=== PATIENT | male | born 1935 | race Caucasian/White ===

== ENCOUNTER → 2016-10-27 | Outpatient (REF) | payer MEDICARE, OTHER ==
[~2016-10-27] MED LIST: ACET50TAOT PO; ADV250INH INH; ALBU17IN INH; ALPR0.5T3 PO; AMIO20TA PO; ASPI81TA85 PO; ATOR1TAB21 PO; CARV3.12 PO; LISI-542 PO; NITR3TA SL; OMEPRAZOLE DR PO; SERT50TA PO; SPIR25TA2 PO; TIOT18INH INH; TORS20TA2 PO; VOLT1GEL24 TD; ZOLP5TAB PO; [UNRECOGNIZED DRUG - OTHER] PO
== END ==
LOC: M LAB REF 16:55
PROVIDERS: ATTEND Internal Medicine
DX: I13.0 Hypertensive heart and chronic kidney disease with heart failure and stage 1 through stage 4 chronic kidney disease, or unspecified chronic kidney disease (principal)

== ENCOUNTER 2017-02-20 13:19 | Emergency (ER) | payer MEDICARE, BC, OTHER ==
[~2017-02-20] VITALS: Ht 175.3 cm; Wt 84.1 kg
[~2017-02-20 13:19] MED LIST changes: +VOLT1GEL15 TD; -VOLT1GEL24 TD
[2017-02-20] MEDS ORDERED: DIGO0.12 PO (13:35)
[2017-02-20] MEDS ORDERED: ASPI81TA85 PO (13:35)
[2017-02-20] MEDS ORDERED: INSUH10VL SC (13:37)
[2017-02-20] MEDS ORDERED: IPRATROPIUM 0.5MG/ALBUTEROL 2.5MG INH SOL UD 3ML (DUONEB)(J7620) NEB ONE (14:00)
[2017-02-20 14:05] LABS: VENOUS O2 SATURATION 64.5 % (60.0-80.0); VENOUS PARTIAL PRESSURE CO2 40.9 mmHg (38.0-50.0); VENOUS PARTIAL PRESSURE O2 34.6 mmHg (30.0-50.0); VENOUS TOTAL CO2 24.4 MEQ/L (24.0-28.0)
[2017-02-20 14:08] LABS: ADD MANUAL DIFFER YES; MEAN CORPUSCULAR HEMOGLOBIN 30.9 pg (27.0-33.0); MEAN CORPUSCULAR HGB CONC 33.8 g/dl (32.0-36.5); MEAN CORPUSCULAR VOLUME 91.4 fl (80.0-96.0); PLATELET COUNT, AUTOMATED 234 k/mm3 (150-450); RED CELL DISTRIBUTION WIDTH 14.1 % (11.5-14.5); WHITE BLOOD COUNT 18.2 K/mm3 (4.0-10.0)
[2017-02-20 14:24] LABS: BANDS 6 % (< 11)
[2017-02-20 14:25] LABS: CALCIUM LEVEL 9.6 MG/DL (8.8-10.2); CREATININE FOR GFR 1.89 MG/DL (0.70-1.30); GLOMERULAR FILTRATION RATE 36.6 (>35); POTASSIUM SERUM 4.4 MEQ/L (3.5-5.1)
[2017-02-20 14:26] LABS: ALBUMIN 3.7 GM/DL (3.2-5.2); ALBUMIN/GLOBULIN RATIO 0.95 (1.00-1.93); BILIRUBIN,DIRECT 0.2 MG/DL (0.0-0.2); BILIRUBIN,TOTAL 0.9 MG/DL (0.2-1.0); TOTAL PROTEIN 7.6 GM/DL (6.4-8.2)
[2017-02-20 14:35] LABS: DIGOXIN LEVEL 0.5 NG/ML (0.5-2.0)
[2017-02-20] MEDS ORDERED: cefTRIAXone SOD 1 GM in D5W MINI-BAG PLUS 50 ML IV ONE (15:15)
[2017-02-20] MEDS ORDERED: NS 2,520 ML in APPROPRIATE DILUENT 1 EA IV ONE (15:15)
[2017-02-20] MEDS ORDERED: AZITHROMYCIN INJ 500 MG, VIAL MATE ADAPTER 1 EACH in D5W 250 ML IV ONE (15:15)
[2017-02-20] MEDS ORDERED: LEVA750T7 PO (19:10)
[2017-02-20 19:34] VITALS: BP 116/61
--- NOTE | 2017-02-20 20:59 | REP ---
CHEST, TWO VIEWS: Two views of the chest are performed and compared with prior study of 11/04/2015 as well as other prior exams. Diffuse patchy infiltrate is seen in the right lung, more so inferiorly. Chronic interstitial changes are seen in the left lung base unchanged. Cardiomediastinal silhouette is unchanged. Heart does not appear to be significantly enlarged. Left pacemaker is again noted. There are mild degenerative changes of the spine. IMPRESSION: Diffuse right lung infiltrate, more so inferiorly. Signed by Will Beltran MD 02/21/2017 01:06 P
--- NOTE | 2017-02-21 08:19 | ECGEPIP ---
Stationary ECG Study [facility] - ED Test Date: 2017-02-20 Pat Name: DAPHNE OCHOA Department: Room: - Gender: M Strapper: sherrell : 1935 Requested By: BRICE NEGRETE Order Number: [id number] Reading MD: Joseluis Lobo Measurements Intervals [place] Rate: 89 P: 39 MT: 158 QRS: 180 QRSD: 127 T: 3 QT: 385 QTc: 469 Interpretive Statements ELECTRONIC VENTRICULAR PACEMAKER ABNORMAL RHYTHM ECG Electronically Signed On 02-21-2017 8:18:51 EDT by Joseluis Lobo
[2017-04-12] MEDS ORDERED: PRED5TA PO (14:45)
[2017-04-12] MEDS ORDERED: NOVO1INJ4 SC (14:45)
[2017-04-12] MEDS ORDERED: MAGN400T5 PO (14:45)
[2017-04-12] MEDS ORDERED: FURO20TA2 PO (14:45)
[2017-04-12] MEDS ORDERED: NOVO70VL SC ×2 (14:45)
[2017-04-12] MEDS ORDERED: VITA200016 PO (14:45)
[2017-04-12] MEDS ORDERED: PROAAER10 INH (14:45)
[2017-04-12] MEDS ORDERED: CART120C PO (14:45)
[2017-04-12] MEDS ORDERED: LEVO75TA4 PO (14:45)
== END 2017-02-20 19:42 | disposition home or self-care (01) ==
LOC: M ED 14:40
DX: J18.9 Pneumonia, unspecified organism (principal); I11.9 Hypertensive heart disease without heart failure; I50.9 Heart failure, unspecified; E11.9 Type 2 diabetes mellitus without complications; E78.5 Hyperlipidemia, unspecified; G89.29 Other chronic pain; M54.9 Dorsalgia, unspecified; K57.30 Diverticulosis of large intestine without perforation or abscess without bleeding; I44.2 Atrioventricular block, complete; F41.9 Anxiety disorder, unspecified; F33.8 Other recurrent depressive disorders; Z95.0 Presence of cardiac pacemaker; Z88.8 Allergy status to other drugs, medicaments and biological substances; Z91.041 Radiographic dye allergy status; Z87.891 Personal history of nicotine dependence; Z79.82 Long term (current) use of aspirin; Z79.4 Long term (current) use of insulin; Z79.899 Other long term (current) drug therapy
CPT/HCPCS: 71020; 80048; 80076; 80162; 82550; 82553; 82803; 83605; 83880; 84443; 84484; 85025; 85379; 87040; 93005; 93041; 94640; 96361; 96374; 96375; 99285; J0456; J0696

== ENCOUNTER 2017-04-13 05:58 | Day surgery (SDC) | payer MEDICARE, BC, OTHER ==
[~2017-04-13] VITALS: Ht 175.3 cm; Wt 83.9 kg
[~2017-04-13 05:58] MED LIST changes: +CART120C PO; +DIGO0.12 PO; +FURO20TA2 PO; +INSUH10VL SC; +LEVA750T7 PO; +LEVO75TA4 PO; +MAGN400T5 PO; +NOVO1INJ4 SC; +NOVO70VL SC; +PRED5TA PO; +PROAAER10 INH; +VITA200016 PO
[2017-04-13] MEDS ORDERED: LR 1,000 ML IV SCH ×2 (06:15→08:45)
[2017-04-13] MEDS ORDERED: BACITRACIN PWD 50,000 UNITS VIAL As Ordered ONE (07:15)
[2017-04-13] MEDS ORDERED: AMIODARONE 150MG/3ML INJ (J0282) As Ordered ONE (07:15)
[2017-04-13] MEDS ORDERED: ISOVUE-300 61% 50ML VIAL (Q9967) As Ordered ONE (07:15)
[2017-04-13] MEDS ORDERED: LIDOCAINE 1% SDV INJ 30 ML VIAL As Ordered ONE (07:15)
[2017-04-13] MEDS ORDERED: MIDAZOLAM INJ 2 MG/2 ML VIAL (J2250) As Ordered ONE (07:53)
[2017-04-13] MEDS ORDERED: LIDOCAINE 2% INJ 100 MG/5 ML SDV (FOR ANES.) As Ordered ONE (07:53)
[2017-04-13] MEDS ORDERED: PROPOFOL 200 MG/20 ML VIAL As Ordered ONE (07:53)
[2017-04-13] MEDS ORDERED: fentaNYL 100 MCG/2 ML INJECTION (J3010) As Ordered ONE (07:53)
[2017-04-13] MEDS ORDERED: ONDANSETRON 4MG/2ML VIAL (J2405) IV PRN (08:45)
[2017-04-13] MEDS ORDERED: fentaNYL 100 MCG/2 ML INJECTION (J3010) IV PRN (08:45)
--- NOTE | 2017-04-13 09:10 | RO ---
DATE OF PROCEDURE: 04/13/2017 PROCEDURE: 1. Explantation of depleted biventricular implantable cardioverter defibrillator pulse generator. 2. Testing of old atrial and ventricular pacing leads. 3. Implantation of new dual-chamber pulse generator. IMPLANTING ARTIST SCIENTIFIC: Dr. Bharath Atkinson WASTE COLLECTOR: Dr. Scotty Lloyd ANESTHESIOLOGIST: Dr. Muñoz PREOPERATIVE DIAGNOSES: 1. Depleted biventricular implantable cardioverter defibrillator pulse generator. 2. Heart failure (systolic and diastolic/chronic). 3. Abnormal EKG - left bundle branch block. 4. Dilated cardiomyopathy. 5. DO NOT RESUSCITATE. POSTPROCEDURE DIAGNOSES: 1. Depleted biventricular implantable cardioverter defibrillator pulse generator. 2. Heart failure (systolic and diastolic/chronic). 3. Abnormal EKG - left bundle branch block. 4. Dilated cardiomyopathy. 5. DO NOT RESUSCITATE. TYPE OF ANESTHESIA: Monitored local anesthesia. CLINICAL SUMMARY: This 81-year-old resident of [place] is well-known to my cardiology practice with ischemic, hypertensive and nonischemic cardiomyopathy. Status post LAD stenting procedure. Status post biventricular implantable cardioverter defibrillator since June 14, 2011. On combination medical therapy and his cardiac resynchronization, his left ventricle ejection fraction dramatically improved. Continues to be followed closely by my cardiology practice and was recently found to have his device indicating elective replacement indicator. His semi elective replacement was scheduled today. As the patient is now DNR, he wished to have his biventricular ICD replaced with a pacemaker. CARDINAL CARDIAC SYMPTOMS: Has been free of any effort related chest discomfort. Has advanced pulmonary disease, wearing continuous oxygen and walks no longer than 50 to 100 feet prior to stopping with dyspnea. Has been free of any palpitations despite a history of prior paroxysmal atrial fibrillation and nonsustained ventricular tachycardia. Previously on amiodarone antiarrhythmic therapy but developed amiodarone pulmonary toxicity. Denies near syncope or syncope, embolic phenomenon or claudication. PHYSICAL EXAMINATION: On examination, pleasant, medium build, elderly gentleman with barrel chest, laying comfortably. Heart rate is 86 beats per minute and regular. Blood pressure 102/60 sitting, respiratory rate 20. Body Mass Index (BMI) 27.5. No pallor or cyanosis. Normal oral moisture. Trachea midline. Neck veins 2 cm above the sternal angle. Increased anteroposterior chest diameter with well-healed left subclavian ICD pulse generator incision. Good air entry over both lung inman with bibasilar inspiratory rales related to pulmonary fibrosis. Prolonged expiration but no audible wheeze. Apical impulse not palpable. Heart sounds quite distant. Has a very soft systolic ejection murmur at the right base. Soft, nontender abdomen. No dependent edema. Peripheral pulses were symmetrical and normal. Blood work February 20, 2017 showed a hemoglobin 13.7 and slightly elevated white blood cell count on steroid therapy. Normal platelet count. His electrolytes were normal except for serum sodium of 131, BUN was 28, creatinine 1.9, random glucose 347 with his diabetes. Serum calcium was normal at 9.6, serum albumin 3.7. PA and left lateral chest x-ray February 20, 2017 showed borderline cardiomegaly with normal greater vessels, biventricular ICD pulse generator left subclavian region with pacing/shocking lead terminating in the right ventricle apex. Right atrial pacing lead and left ventricular pacing lead in the posterolateral branch of the coronary sinus. Hyperinflated lung inman with diffuse interstitial abnormalities unchanged from the past. No pleural effusion. Degenerative changes of his thoracic spine. EKG showed consistent sinus rhythm at 89 beats per minute. There was evidence of atrial sensing and tracking with biventricular pacing. Paced QRS complexes had a rightward axis with right bundle branch block configuration. DESCRIPTION OF PROCEDURE: Following informed consent, the patient in a fasting state, having received Ancef 2 grams IV premedication, the patient to the operating theater. Numerous skin electrodes were applied to facilitate continuous electrocardiographic monitoring. His old left subclavian ICD pulse generator site was prepped and draped in the usual fashion. The skin was infiltrated with 1% Xylocaine and a 5-cm linear incision was made over the same old scar. Careful dissection was then performed down to the level of the pulse generator, which was then explanted. The depleted biventricular cardioverter defibrillator pulse generator was a [employer] model number [id number], serial number [id number] originally implanted June 14, 2011. The individual pacing/sensing and shocking leads were then disconnected from the depleted pulse generator and tested. The left ventricular lead ([employer] model number 1258T/86, serial number [id number]), measurements were full: Pacing threshold of 1.0 V/0.4 ms/impedance 1289 ohms. R wave amplitude measured 22.1 mV. The atrial lead ([employer] model number 1688TC/52, serial number [id number]) measurements were: Stimulation threshold 0.9, V/0.4 ms/impedance 305 ohms. The P wave amplitude measured 3.3 mV. The old pacing/sensing/shocking right ventricular lead ([employer] model number 7120Q/65, serial number [id number]) was then capped off and placed back in the pocket. The pocket was thoroughly irrigated with bacitracin solution. The old right atrial and left ventricular pacing leads were then connected to a new dual-chamber pulse generator ([employer] - Assurity, MRI compatible model number [id number], serial number [id number]), appropriate DDD pacing was documented. The generator was placed in the pocket. Subcutaneous tissues were approximated using a running chromic suture and skin was closed using talia. A dry dressing was applied. The patient was returned to recovery room in good condition. There was no blood loss. No apparent complications. Our plan is to obtain an EKG to document his current appearance with left ventricular pacing. Once he is able to take orally and ambulate, he will be discharged home. DISCHARGE MEDICATIONS AND RECOMMENDATIONS: The patient was to resume his customary no added salt, low-fat, low-cholesterol diabetic diet. Activity was to be as tolerated except for light activity of daily living with his left arm. He was to avoid getting his incision wet until his talia were removed in my office on April 22 at 1245 hours. His medications were to resume: - digoxin 0.125 mg daily - diltiazem ER 120 mg tablets one tablet twice a day - torsemide 20 mg daily for a home weight of 190 pounds or more - magnesium oxide 1 tablet by mouth twice a day - atorvastatin 20 mg at night - spironolactone 25 mg daily - aspirin 81 mg daily - Spiriva inhaler one inhalation daily - Advair Diskus 250/50 one inhalation twice a day - levofloxacin 75 mcg daily - Nitrostat 0.4 mg sublingually every 5 minutes as needed for chest pain - prednisone 5 mg tablets to use as directed - home oxygen at 2.5 liters - vitamin D3 2000 International Units daily - ranitidine 300 mg at night - Voltaren gel topically as directed - NovoLog insulin 70/30 subcutaneous twice a day as directed - Ambien 5 mg at night as needed - Xanax 0.5 mg one tablet four times a day as needed for dyspnea - Ventolin inhaler two puffs at bedtime four times a day as needed and prior to Advair use - Tylenol 500 mg four times a day as needed for pain - sertraline 50 mg by mouth daily He was encouraged to contact us promptly for any abnormal erythema, swelling or discharge. Bharath Atkinson MD [facility]
[2017-04-13 09:15] VITALS: BP 149/73
--- NOTE | 2017-04-13 11:57 | ECGEPIP ---
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
== END 2017-04-13 09:30 | disposition home or self-care (01) ==
LOC: M SDC 05:58
PROVIDERS: ATTEND Internal Medicine Cardiovascular Disease
DX: T82.111A Breakdown (mechanical) of cardiac pulse generator (battery), initial encounter (principal); I50.42 Chronic combined systolic (congestive) and diastolic (congestive) heart failure; I44.7 Left bundle-branch block, unspecified; I42.0 Dilated cardiomyopathy; Z66 Do not resuscitate; E03.9 Hypothyroidism, unspecified; I25.10 Atherosclerotic heart disease of native coronary artery without angina pectoris; I49.9 Cardiac arrhythmia, unspecified; R07.9 Chest pain, unspecified; I25.2 Old myocardial infarction; I11.0 Hypertensive heart disease with heart failure; E78.00 Pure hypercholesterolemia, unspecified; E10.9 Type 1 diabetes mellitus without complications; K57.30 Diverticulosis of large intestine without perforation or abscess without bleeding; K21.9 Gastro-esophageal reflux disease without esophagitis; R06.02 Shortness of breath; F41.9 Anxiety disorder, unspecified; M12.9 Arthropathy, unspecified; F32.9 Major depressive disorder, single episode, unspecified; J84.10 Pulmonary fibrosis, unspecified; R06.83 Snoring; G47.9 Sleep disorder, unspecified; N28.9 Disorder of kidney and ureter, unspecified; Z88.8 Allergy status to other drugs, medicaments and biological substances; Z91.041 Radiographic dye allergy status; Z79.899 Other long term (current) drug therapy; Z79.82 Long term (current) use of aspirin; Z79.4 Long term (current) use of insulin; Z95.5 Presence of coronary angioplasty implant and graft; Z96.1 Presence of intraocular lens
CPT/HCPCS: 33263; 93005; C1785; J0690; J2250; J3010

== ENCOUNTER → 2017-05-04 | Outpatient (CLI) | payer MEDICARE, BC, OTHER ==
[2017-05-04 11:01] LABS: BASO % 0.2 % (0.0-1.0); EOS % 0.1 % (0.0-3.0); IMMATURE GRANULOCYTE % 0.8 % (0-0); LYMPH # 0.5 10^3/uL (1.5-4.5); LYMPH % 2.9 % (24.0-44.0); MEAN CORPUSCULAR HEMOGLOBIN 29.7 pg (27.0-33.0); MEAN CORPUSCULAR HGB CONC 32.9 g/dl (32.0-36.5); MEAN CORPUSCULAR VOLUME 90.2 fl (80.0-96.0); MONO % 7.3 % (0.0-5.0); NEUTROPHILS # 15.1 10^3/uL (1.8-7.7); NEUTROPHILS % 88.7 % (36.0-66.0); PLATELET COUNT, AUTOMATED 228 10^3/uL (150-450); RED CELL DISTRIBUTION WIDTH 13.8 % (11.5-14.5)
[2017-05-04 11:46] LABS: ADD MANUAL DIFFER NO; DIFF SLIDE NUMBER 182; MONO # 1.2 10^3/uL (0.0-0.8)
[2017-05-04 12:10] LABS: ALBUMIN 3.5 GM/DL (3.2-5.2); ALBUMIN/GLOBULIN RATIO 0.85 (1.00-1.93); BILIRUBIN,TOTAL 1.2 MG/DL (0.2-1.0); CREATININE FOR GFR 1.76 MG/DL (0.70-1.30); GLOMERULAR FILTRATION RATE 39.8 (>35); TOTAL PROTEIN 7.6 GM/DL (6.4-8.2)
[2017-05-04 22:04] LABS: ERYTHROCYTE SEDIMENTATION RATE 68 mm/hr (0-20)
== END ==
LOC: M LAB 10:15
PROVIDERS: ATTEND Internal Medicine Cardiovascular Disease
DX: R06.02 Shortness of breath (principal)

== ENCOUNTER → 2017-05-18 | Outpatient (REF) | payer MEDICARE, OTHER | LOC: M LAB REF 15:00 | PROVIDERS: ATTEND Internal Medicine | DX: R06.02 Shortness of breath (principal) ==

== ENCOUNTER 2018-03-27 12:59 | Inpatient (IN) | payer MEDICARE, BC, OTHER ==
[2018-03-27] MEDS: ACETAMINOPHEN 325 MG TAB PO (13:26)
[2018-03-27] MEDS: NS 1,000 ML IV ×3 (13:27→17:54)
[2018-03-27] MEDS: METOCLOPRAMIDE INJ 10MG/2ML VIAL (J2765) IV (13:27)
[2018-03-27 13:31] LABS: BASO % 0.1 % (0.0-1.0); HEMATOCRIT 40.9 % (42.0-52.0); HEMOGLOBIN 14.2 g/dl (13.5-17.5); IMMATURE GRANULOCYTE % 0.9 % (0-3.0); LYMPH % 0.9 % (24.0-44.0); MEAN CORPUSCULAR HEMOGLOBIN 30.5 pg (27.0-33.0); MEAN CORPUSCULAR HGB CONC 34.7 g/dl (32.0-36.5); MONO # 0.4 10^3/uL (0.0-0.8); MONO % 3.5 % (0.0-5.0); NEUTROPHILS % 94.6 % (36.0-66.0); PLATELET COUNT, AUTOMATED 166 10^3/uL (150-450); RED BLOOD COUNT 4.65 10^6/uL (4.30-6.10); WHITE BLOOD COUNT 10.6 10^3/uL (4.0-10.0)
[2018-03-27 13:44] LABS: INR 1.16
[2018-03-27 13:52] LABS: ALBUMIN 3.4 GM/DL (3.2-5.2); ALBUMIN/GLOBULIN RATIO 0.81 (1.00-1.93); ALKALINE PHOSPHATASE 72 U/L (45-117); ALT/SGPT 36 U/L (12-78); ANION GAP 11 MEQ/L (8-16); AST/SGOT 31 U/L (7-37); BILIRUBIN,DIRECT 0.2 MG/DL (0.0-0.2); BILIRUBIN,TOTAL 0.8 MG/DL (0.2-1.0); BLOOD UREA NITROGEN 31 MG/DL (7-18); CALCIUM LEVEL 9.2 MG/DL (8.8-10.2); CARBON DIOXIDE LEVEL 23 MEQ/L (21-32); CHLORIDE LEVEL 100 MEQ/L (98-107); GLOMERULAR FILTRATION RATE 44.3 (>35); GLUCOSE, FASTING 324 MG/DL (70-100); LIPASE 86 U/L (73-393); POTASSIUM SERUM 4.3 MEQ/L (3.5-5.1); SODIUM LEVEL 134 MEQ/L (136-145); TOTAL PROTEIN 7.6 GM/DL (6.4-8.2)
[2018-03-27 14:03] LABS: LYMPH # 0.1 10^3/uL (1.5-4.5); POSITIVE DIFF POS FLAG
[2018-03-27 14:04] LABS: ADD MORPHOLOGY? NO
[2018-03-27 14:25] LABS: LACTIC ACID SEPSIS PROTOCOL 2.4 MMOL/L (0.4-2.0)
[2018-03-27] MEDS: HumuLIN R (REGULAR) INSULIN (NovoLIN R) **100U/ML** PER UNIT IV (14:49)
[2018-03-27 15:04] LABS: DIGOXIN LEVEL 0.4 NG/ML (0.5-2.0)
[2018-03-27 15:19] LABS: KETONE, URINE AUTO RFX 1+ mg/dL (NEGATIVE); LEUKOCYTE ESTERASE UR AUTO RFX NEGATIVE (NEGATIVE); NITRITE, URINE AUTO RFX NEGATIVE (NEGATIVE); RBC, URINE AUTO RFX 1 /HPF (0-3); SPECIFIC GRAVITY UR AUTO RFX 1.018 (1.002-1.035); SQUAM EPITHELIAL CELL UR AURFX 0 /HPF (0-6); WBC, URINE AUTO RFX 3 /HPF (0-3)
[2018-03-27] MEDS: CEFEPIME HCL 1 GM in D5W MINI-BAG PLUS 50 ML IV (15:56)
[2018-03-27] MEDS ORDERED: GLUCAGON FOR INJ 1 MG VIAL (J1610) SC (17:00)
[2018-03-27] MEDS ORDERED: DEXTROSE 50% 50 ML SYRINGE IV (17:00)
[2018-03-27] MEDS ORDERED: ONDANSETRON 4MG/2ML VIAL (J2405) IV (17:00)
[2018-03-27] MEDS ORDERED: ONDANSETRON 4 MG TAB (S0181) PO (17:00)
[2018-03-27] MEDS ORDERED: GLUCOSE 4 GM CHEW TABLET PO (17:00)
[2018-03-27] MEDS ORDERED: PERCOCET 5MG/325MG TAB PO (17:00)
[2018-03-27] MEDS: VANCOMYCIN HCL 750 MG, VIAL MATE ADAPTER 1 EACH in D5W 250 ML IV (17:03)
[2018-03-27] MEDS: HYDROCORTISONE 100 MG/2 ML VIAL (J1720) IV (17:06)
[2018-03-27] MEDS ORDERED: ALBUTEROL SULFATE 2.5 MG/0.5 ML INH NEB SOLN NEB (18:00)
[2018-03-27] MEDS: MEROPENEM INJ 1 GM in APPROPRIATE DILUENT 1 EA IV (18:22)
[2018-03-27] MEDS: HumaLOG INSULIN (NovoLOG) PER UNIT SC ×2 (20:36→21:02)
[2018-03-27 20:54] LABS: BEDSIDE GLUCOSE 346 MG/DL (83-110)
[2018-03-27] MEDS: ALPRAZolam 0.5 MG TAB PO (21:01)
[2018-03-27] MEDS: HEPARIN SOD (PORCINE) 5000 UNITS/ML VIAL SC (21:03)
[2018-03-27] MEDS: LEVEMIR (INSULIN DETEMIR) 1 UNITS/0.01ML SC (21:03)
[2018-03-27] MEDS: ADVAIR HFA 115/21MCG INHALER INH (21:18)
[2018-03-27] MEDS: VANCOMYCIN HCL 1,000 MG, VIAL MATE ADAPTER 1 EACH in D5W/0.2% SODIUM CHLORIDE 250 ML IV (21:36)
[2018-03-28] MEDS: ACETAMINOPHEN TAB 650MG DOSE (2X325MG) PO ×2 (00:28→20:57)
[2018-03-28] MEDS: HYDROCORTISONE 100 MG/2 ML VIAL (J1720) IV ×3 (00:30→17:14)
[2018-03-28] MEDS: MEROPENEM INJ 1 GM in APPROPRIATE DILUENT 1 EA IV ×3 (02:04→17:14)
[2018-03-28] MEDS: NS 1,000 ML IV ×2 (04:12→08:35)
[2018-03-28 05:04] LABS: HEMATOCRIT 33.6 % (42.0-52.0); MEAN CORPUSCULAR HEMOGLOBIN 30.5 pg (27.0-33.0); MEAN CORPUSCULAR HGB CONC 33.9 g/dl (32.0-36.5); MEAN CORPUSCULAR VOLUME 89.8 fl (80.0-96.0); PLATELET COUNT, AUTOMATED 119 10^3/uL (150-450); RED BLOOD COUNT 3.74 10^6/uL (4.30-6.10); RED CELL DISTRIBUTION WIDTH 14.5 % (11.5-14.5); WHITE BLOOD COUNT 9.2 10^3/uL (4.0-10.0)
[2018-03-28 05:13] LABS: ADD MANUAL DIFFER YES; DIFF SLIDE NUMBER 91; POSITIVE DIFF POS FLAG; POSITIVE MORPH POS FLAG
[2018-03-28 05:14] LABS: HEMOGLOBIN 11.4 g/dl (13.5-17.5)
[2018-03-28 05:29] LABS: ALBUMIN 2.6 GM/DL (3.2-5.2); ALBUMIN/GLOBULIN RATIO 0.76 (1.00-1.93); ALKALINE PHOSPHATASE 46 U/L (45-117); ALT/SGPT 96 U/L (12-78); ANION GAP 7 MEQ/L (8-16); AST/SGOT 134 U/L (7-37); BILIRUBIN,TOTAL 0.5 MG/DL (0.2-1.0); BLOOD UREA NITROGEN 26 MG/DL (7-18); CARBON DIOXIDE LEVEL 24 MEQ/L (21-32); CHLORIDE LEVEL 107 MEQ/L (98-107); GLOMERULAR FILTRATION RATE 51.7 (>35); GLUCOSE, FASTING 247 MG/DL (70-100); MAGNESIUM LEVEL 1.9 MG/DL (1.8-2.4); SODIUM LEVEL 138 MEQ/L (136-145)
[2018-03-28 05:37] LABS: CALCIUM LEVEL 7.8 MG/DL (8.8-10.2)
[2018-03-28 05:42] LABS: BANDS 1 % (< 11); LYMPHOCYTES 1 % (16-52); MONOCYTES 1 % (0-8); NEUTROPHILS 97 % (35-75); PLATELET ESTIMATE DECREASED (NORMAL)
[2018-03-28] MEDS: HEPARIN SOD (PORCINE) 5000 UNITS/ML VIAL SC ×3 (06:05→20:57)
[2018-03-28] MEDS: LEVOTHYROXINE 75MCG TABLET (0.075MG) PO (06:05)
[2018-03-28] MEDS: ADVAIR HFA 115/21MCG INHALER INH ×2 (07:43→20:43)
[2018-03-28] MEDS: HumaLOG INSULIN (NovoLOG) PER UNIT SC ×4 (08:31→20:58)
[2018-03-28] MEDS: LEVEMIR (INSULIN DETEMIR) 1 UNITS/0.01ML SC ×2 (08:31→20:56)
[2018-03-28] MEDS: ASPIRIN 81 MG ENTERIC TAB PO (08:32)
[2018-03-28] MEDS: SERTRALINE HCL 50 MG TAB PO (08:32)
[2018-03-28] MEDS: VITAMIN D 1,000 INTERNATIONAL UNITS TABLET PO (08:32)
[2018-03-28] MEDS: FAMOTIDINE 20 MG TAB PO (08:32)
[2018-03-28] MEDS: MAGNESIUM OXIDE 400 MG TAB (MAG-OX) PO (08:33)
[2018-03-28] MEDS: ATORVASTATIN 20 MG TAB PO (08:33)
[2018-03-28] MEDS ORDERED: TORSEMIDE 20 MG TAB PO (09:00)
[2018-03-28] MEDS: VANCOMYCIN HCL 1,000 MG, VIAL MATE ADAPTER 1 EACH in D5W/0.2% SODIUM CHLORIDE 250 ML IV ×2 (10:24→22:00)
[2018-03-28 11:52] LABS: BEDSIDE GLUCOSE 179 MG/DL (83-110)
[2018-03-28 16:27] LABS: BEDSIDE GLUCOSE 208 MG/DL (83-110)
[2018-03-28 20:51] LABS: BEDSIDE GLUCOSE 205 MG/DL (83-110)
[2018-03-28] MEDS: ALPRAZolam 0.5 MG TAB PO (20:56)
[2018-03-28 21:49] LABS: VANCOMYCIN LEVEL TROUGH 13.7 UG/ML (10.0-20.0)
[2018-03-29] MEDS: MEROPENEM INJ 1 GM in APPROPRIATE DILUENT 1 EA IV ×3 (01:00→17:06)
[2018-03-29] MEDS: HYDROCORTISONE 100 MG/2 ML VIAL (J1720) IV ×2 (01:00→09:23)
[2018-03-29] MEDS: LEVOTHYROXINE 75MCG TABLET (0.075MG) PO (06:02)
[2018-03-29] MEDS: HEPARIN SOD (PORCINE) 5000 UNITS/ML VIAL SC (06:03)
[2018-03-29 06:11] LABS: BASO % 0.2 % (0.0-1.0); HEMATOCRIT 30.6 % (42.0-52.0); HEMOGLOBIN 10.6 g/dl (13.5-17.5); IMMATURE GRANULOCYTE % 0.5 % (0-3.0); LYMPH % 5.9 % (24.0-44.0); MEAN CORPUSCULAR HEMOGLOBIN 30.1 pg (27.0-33.0); MEAN CORPUSCULAR HGB CONC 34.6 g/dl (32.0-36.5); MEAN CORPUSCULAR VOLUME 86.9 fl (80.0-96.0); MONO # 0.3 10^3/uL (0.0-0.8); MONO % 7.2 % (0.0-5.0); NEUTROPHILS # 3.5 10^3/uL (1.8-7.7); NEUTROPHILS % 86.2 % (36.0-66.0); RED BLOOD COUNT 3.52 10^6/uL (4.30-6.10); RED CELL DISTRIBUTION WIDTH 14.5 % (11.5-14.5); WHITE BLOOD COUNT 4.1 10^3/uL (4.0-10.0)
[2018-03-29 06:19] LABS: ALBUMIN 2.6 GM/DL (3.2-5.2); ALBUMIN/GLOBULIN RATIO 0.72 (1.00-1.93); ALKALINE PHOSPHATASE 45 U/L (45-117); ALT/SGPT 81 U/L (12-78); ANION GAP 11 MEQ/L (8-16); AST/SGOT 66 U/L (7-37); BILIRUBIN,TOTAL 0.6 MG/DL (0.2-1.0); BLOOD UREA NITROGEN 20 MG/DL (7-18); CALCIUM LEVEL 7.9 MG/DL (8.8-10.2); CARBON DIOXIDE LEVEL 21 MEQ/L (21-32); CHLORIDE LEVEL 105 MEQ/L (98-107); CREATININE FOR GFR 1.39 MG/DL (0.70-1.30); GLOMERULAR FILTRATION RATE 52.1 (>35); GLUCOSE, FASTING 302 MG/DL (70-100); MAGNESIUM LEVEL 2.2 MG/DL (1.8-2.4); POTASSIUM SERUM 3.7 MEQ/L (3.5-5.1); SODIUM LEVEL 137 MEQ/L (136-145); TOTAL PROTEIN 6.2 GM/DL (6.4-8.2)
[2018-03-29 06:49] LABS: PLATELET COUNT, AUTOMATED 95 10^3/uL (150-450)
[2018-03-29 06:50] LABS: LYMPH # 0.2 10^3/uL (1.5-4.5); POSITIVE DIFF POS FLAG
[2018-03-29 06:51] LABS: IMMATURE PLATELET FRACTION % 5.1 % (0.0-10.9)
[2018-03-29] MEDS: ADVAIR HFA 115/21MCG INHALER INH ×2 (08:28→20:54)
[2018-03-29] MEDS: HumaLOG INSULIN (NovoLOG) PER UNIT SC ×4 (09:22→21:00)
[2018-03-29] MEDS: LEVEMIR (INSULIN DETEMIR) 1 UNITS/0.01ML SC ×2 (09:23→21:11)
[2018-03-29] MEDS: FAMOTIDINE 20 MG TAB PO (09:23)
[2018-03-29] MEDS: MAGNESIUM OXIDE 400 MG TAB (MAG-OX) PO (09:24)
[2018-03-29] MEDS: VITAMIN D 1,000 INTERNATIONAL UNITS TABLET PO (09:24)
[2018-03-29] MEDS: ATORVASTATIN 20 MG TAB PO (09:24)
[2018-03-29] MEDS: DIGOXIN 0.125 MG TAB PO (09:25)
[2018-03-29] MEDS: ASPIRIN 81 MG ENTERIC TAB PO (09:25)
[2018-03-29] MEDS: SERTRALINE HCL 50 MG TAB PO (09:25)
[2018-03-29] MEDS: VANCOMYCIN HCL 1,000 MG, VIAL MATE ADAPTER 1 EACH in D5W/0.2% SODIUM CHLORIDE 250 ML IV ×2 (09:26→21:10)
[2018-03-29 11:37] LABS: BEDSIDE GLUCOSE 146 MG/DL (83-110)
[2018-03-29] MEDS: ACETAMINOPHEN TAB 650MG DOSE (2X325MG) PO (11:42)
[2018-03-29 14:12] LABS: CK-MB VALUE MASS 1.8 NG/ML (<3.6); CPK CREATINE PHOSPHOKINASE 196 U/L (39-308); MAGNESIUM LEVEL 2.1 MG/DL (1.8-2.4); MB/CK RELATIVE INDEX 0.91 (< OR =4); TROPONIN I 0.08 NG/ML (< 0.10)
[2018-03-29] MEDS: predniSONE 10 MG TAB PO (15:01)
[2018-03-29 16:41] LABS: BEDSIDE GLUCOSE 270 MG/DL (83-110)
[2018-03-29 20:32] LABS: BEDSIDE GLUCOSE 343 MG/DL (83-110)
[2018-03-29] MEDS: ALPRAZolam 0.5 MG TAB PO (21:12)
[2018-03-30] MEDS: MEROPENEM INJ 1 GM in APPROPRIATE DILUENT 1 EA IV ×2 (02:36→10:00)
[2018-03-30] MEDS: LEVOTHYROXINE 75MCG TABLET (0.075MG) PO (05:15)
[2018-03-30 08:53] LABS: BEDSIDE GLUCOSE 195 MG/DL (83-110)
[2018-03-30] MEDS: ADVAIR HFA 115/21MCG INHALER INH ×2 (08:54→21:55)
[2018-03-30] MEDS: LEVEMIR (INSULIN DETEMIR) 1 UNITS/0.01ML SC ×2 (09:01→21:24)
[2018-03-30] MEDS: HumaLOG INSULIN (NovoLOG) PER UNIT SC ×4 (09:02→21:23)
[2018-03-30] MEDS: VANCOMYCIN HCL 1,000 MG, VIAL MATE ADAPTER 1 EACH in D5W/0.2% SODIUM CHLORIDE 250 ML IV (09:02)
[2018-03-30] MEDS: SERTRALINE HCL 50 MG TAB PO (09:03)
[2018-03-30] MEDS: FAMOTIDINE 20 MG TAB PO (09:03)
[2018-03-30] MEDS: VITAMIN D 1,000 INTERNATIONAL UNITS TABLET PO (09:03)
[2018-03-30] MEDS: ATORVASTATIN 20 MG TAB PO (09:03)
[2018-03-30] MEDS: MAGNESIUM OXIDE 400 MG TAB (MAG-OX) PO (09:03)
[2018-03-30] MEDS: ASPIRIN 81 MG ENTERIC TAB PO (09:03)
[2018-03-30] MEDS: predniSONE 10 MG TAB PO (09:03)
[2018-03-30 09:32] LABS: BASO % 0.2 % (0.0-1.0); EOS % 0.2 % (0.0-3.0); HEMATOCRIT 31.2 % (42.0-52.0); HEMOGLOBIN 10.6 g/dl (13.5-17.5); LYMPH # 0.5 10^3/uL (1.5-4.5); LYMPH % 11.7 % (24.0-44.0); MEAN CORPUSCULAR HEMOGLOBIN 29.9 pg (27.0-33.0); MEAN CORPUSCULAR VOLUME 87.9 fl (80.0-96.0); MONO # 0.4 10^3/uL (0.0-0.8); MONO % 9.3 % (0.0-5.0); NEUTROPHILS # 3.2 10^3/uL (1.8-7.7); NEUTROPHILS % 77.6 % (36.0-66.0); RED BLOOD COUNT 3.55 10^6/uL (4.30-6.10); RED CELL DISTRIBUTION WIDTH 13.8 % (11.5-14.5); WHITE BLOOD COUNT 4.1 10^3/uL (4.0-10.0)
[2018-03-30 09:36] LABS: PLATELET COUNT, AUTOMATED 99 10^3/uL (150-450)
[2018-03-30 09:48] LABS: ALBUMIN 2.7 GM/DL (3.2-5.2); ALBUMIN/GLOBULIN RATIO 0.77 (1.00-1.93); ALKALINE PHOSPHATASE 48 U/L (45-117); ALT/SGPT 60 U/L (12-78); ANION GAP 10 MEQ/L (8-16); AST/SGOT 36 U/L (7-37); BILIRUBIN,TOTAL 0.7 MG/DL (0.2-1.0); BLOOD UREA NITROGEN 15 MG/DL (7-18); CALCIUM LEVEL 8.1 MG/DL (8.8-10.2); CARBON DIOXIDE LEVEL 26 MEQ/L (21-32); CHLORIDE LEVEL 102 MEQ/L (98-107); GLOMERULAR FILTRATION RATE > 60.0 (>35); GLUCOSE, FASTING 192 MG/DL (70-100); MAGNESIUM LEVEL 2.1 MG/DL (1.8-2.4); POTASSIUM SERUM 3.4 MEQ/L (3.5-5.1); SODIUM LEVEL 138 MEQ/L (136-145); TOTAL PROTEIN 6.2 GM/DL (6.4-8.2)
[2018-03-30] MEDS: ACETAMINOPHEN TAB 650MG DOSE (2X325MG) PO (10:03)
[2018-03-30] MEDS ORDERED: CALCIUM CARBONATE 500 MG CHEW U/D PO (11:15)
[2018-03-30] MEDS ORDERED: ceFAZolin 1GM INJ (J0690 PER 500MG) IM (12:00)
[2018-03-30 12:07] LABS: BEDSIDE GLUCOSE 205 MG/DL (83-110)
[2018-03-30 16:32] LABS: C REACTIVE PROTEIN QUANTITATIV 8.81 MG/DL (0.00-0.30)
[2018-03-30 17:01] LABS: BEDSIDE GLUCOSE 258 MG/DL (83-110)
[2018-03-30 17:03] LABS: ERYTHROCYTE SEDIMENTATION RATE 54 mm/hr (0-20)
[2018-03-30] MEDS: CALCIUM CARBONATE 500 MG CHEW U/D PO (19:50)
[2018-03-30 21:14] LABS: BEDSIDE GLUCOSE 267 MG/DL (83-110)
[2018-03-30] MEDS: ALPRAZolam 0.5 MG TAB PO (21:23)
[2018-03-31] MEDS: LEVOTHYROXINE 75MCG TABLET (0.075MG) PO (05:48)
[2018-03-31 07:05] LABS: BEDSIDE GLUCOSE 211 MG/DL (83-110)
[2018-03-31] MEDS: HumaLOG INSULIN (NovoLOG) PER UNIT SC ×5 (07:30→21:20)
[2018-03-31] MEDS: ADVAIR HFA 115/21MCG INHALER INH ×2 (08:28→20:48)
[2018-03-31 08:36] LABS: BASO % 0.3 % (0.0-1.0); EOS % 0.2 % (0.0-3.0); HEMATOCRIT 32.3 % (42.0-52.0); HEMOGLOBIN 11.3 g/dl (13.5-17.5); IMMATURE GRANULOCYTE % 0.9 % (0-3.0); LYMPH # 0.6 10^3/uL (1.5-4.5); LYMPH % 8.8 % (24.0-44.0); MEAN CORPUSCULAR HEMOGLOBIN 30.1 pg (27.0-33.0); MEAN CORPUSCULAR VOLUME 85.9 fl (80.0-96.0); MONO # 0.5 10^3/uL (0.0-0.8); NEUTROPHILS # 5.2 10^3/uL (1.8-7.7); NEUTROPHILS % 81.8 % (36.0-66.0); PLATELET COUNT, AUTOMATED 113 10^3/uL (150-450); RED BLOOD COUNT 3.76 10^6/uL (4.30-6.10); RED CELL DISTRIBUTION WIDTH 13.6 % (11.5-14.5); WHITE BLOOD COUNT 6.4 10^3/uL (4.0-10.0)
[2018-03-31 08:53] LABS: ALBUMIN 2.8 GM/DL (3.2-5.2); ALKALINE PHOSPHATASE 56 U/L (45-117); ALT/SGPT 45 U/L (12-78); ANION GAP 10 MEQ/L (8-16); AST/SGOT 27 U/L (7-37); BILIRUBIN,TOTAL 0.7 MG/DL (0.2-1.0); BLOOD UREA NITROGEN 15 MG/DL (7-18); CALCIUM LEVEL 8.5 MG/DL (8.8-10.2); CARBON DIOXIDE LEVEL 27 MEQ/L (21-32); CHLORIDE LEVEL 101 MEQ/L (98-107); CREATININE FOR GFR 1.25 MG/DL (0.70-1.30); GLOMERULAR FILTRATION RATE 58.9 (>35); GLUCOSE, FASTING 211 MG/DL (70-100); POTASSIUM SERUM 3.1 MEQ/L (3.5-5.1); SODIUM LEVEL 138 MEQ/L (136-145); TOTAL PROTEIN 6.8 GM/DL (6.4-8.2)
[2018-03-31] MEDS: POTASSIUM CHLORIDE 10 MEQ SR TABLET PO (09:41)
[2018-03-31] MEDS: ATORVASTATIN 20 MG TAB PO (09:41)
[2018-03-31] MEDS: predniSONE 10 MG TAB PO (09:42)
[2018-03-31] MEDS: VITAMIN D 1,000 INTERNATIONAL UNITS TABLET PO (09:42)
[2018-03-31] MEDS: SERTRALINE HCL 50 MG TAB PO (09:42)
[2018-03-31] MEDS: FAMOTIDINE 20 MG TAB PO (09:42)
[2018-03-31] MEDS: DIGOXIN 0.125 MG TAB PO (09:43)
[2018-03-31] MEDS: LEVEMIR (INSULIN DETEMIR) 1 UNITS/0.01ML SC ×2 (09:43→21:10)
[2018-03-31] MEDS: ASPIRIN 81 MG ENTERIC TAB PO (09:43)
[2018-03-31] MEDS: MAGNESIUM OXIDE 400 MG TAB (MAG-OX) PO (09:43)
[2018-03-31] MEDS: ACETAMINOPHEN TAB 650MG DOSE (2X325MG) PO (11:23)
[2018-03-31 12:07] LABS: BEDSIDE GLUCOSE 277 MG/DL (83-110)
[2018-03-31] MEDS ORDERED: LIDOCAINE 1% MDV 20ML VIAL As Ordered (15:38)
[2018-03-31] MEDS: CETACAINE SPRAY 5GM As Ordered (17:30)
[2018-03-31] MEDS: LIDOCAINE VISCOUS 2% SOLN 15ML UDC As Ordered (17:44)
[2018-03-31 17:57] LABS: BEDSIDE GLUCOSE 281 MG/DL (83-110)
[2018-03-31] MEDS ORDERED: LR 1,000 ML IV (18:00)
[2018-03-31] MEDS ORDERED: ONDANSETRON 4MG/2ML VIAL (J2405) IV (18:00)
[2018-03-31] MEDS ORDERED: HumaLOG INSULIN (NovoLOG) PER UNIT As Ordered (18:12)
[2018-03-31] MEDS ORDERED: HumaLOG INSULIN (NovoLOG) PER UNIT SC (18:15)
[2018-03-31] MEDS: ALPRAZolam 0.5 MG TAB PO (21:08)
[2018-03-31 21:20] LABS: BEDSIDE GLUCOSE 284 MG/DL (83-110)
[2018-04-01] MEDS: LEVOTHYROXINE 75MCG TABLET (0.075MG) PO (05:09)
[2018-04-01 06:31] LABS: BASO % 0.4 % (0.0-1.0); EOS % 0.5 % (0.0-3.0); HEMATOCRIT 28.6 % (42.0-52.0); IMMATURE GRANULOCYTE % 0.9 % (0-3.0); LYMPH # 0.9 10^3/uL (1.5-4.5); LYMPH % 15.2 % (24.0-44.0); MEAN CORPUSCULAR HEMOGLOBIN 30.4 pg (27.0-33.0); MEAN CORPUSCULAR VOLUME 86.9 fl (80.0-96.0); MONO # 0.5 10^3/uL (0.0-0.8); MONO % 8.5 % (0.0-5.0); NEUTROPHILS # 4.2 10^3/uL (1.8-7.7); NEUTROPHILS % 74.5 % (36.0-66.0); PLATELET COUNT, AUTOMATED 116 10^3/uL (150-450); RED BLOOD COUNT 3.29 10^6/uL (4.30-6.10); RED CELL DISTRIBUTION WIDTH 13.8 % (11.5-14.5); WHITE BLOOD COUNT 5.7 10^3/uL (4.0-10.0)
[2018-04-01 07:03] LABS: ALBUMIN 2.5 GM/DL (3.2-5.2); ALBUMIN/GLOBULIN RATIO 0.78 (1.00-1.93); ALKALINE PHOSPHATASE 54 U/L (45-117); ALT/SGPT 28 U/L (12-78); ANION GAP 8 MEQ/L (8-16); AST/SGOT 24 U/L (7-37); BILIRUBIN,TOTAL 0.6 MG/DL (0.2-1.0); BLOOD UREA NITROGEN 19 MG/DL (7-18); CALCIUM LEVEL 7.8 MG/DL (8.8-10.2); CARBON DIOXIDE LEVEL 30 MEQ/L (21-32); CHLORIDE LEVEL 101 MEQ/L (98-107); CREATININE FOR GFR 1.14 MG/DL (0.70-1.30); GLOMERULAR FILTRATION RATE > 60.0 (>35); GLUCOSE, FASTING 170 MG/DL (70-100); MAGNESIUM LEVEL 1.9 MG/DL (1.8-2.4); POTASSIUM SERUM 3.5 MEQ/L (3.5-5.1); SODIUM LEVEL 139 MEQ/L (136-145); TOTAL PROTEIN 5.7 GM/DL (6.4-8.2)
[2018-04-01] MEDS: HumaLOG INSULIN (NovoLOG) PER UNIT SC (07:51)
[2018-04-01] MEDS: ASPIRIN 81 MG ENTERIC TAB PO (08:02)
[2018-04-01] MEDS: predniSONE 10 MG TAB PO (08:02)
[2018-04-01] MEDS: SERTRALINE HCL 50 MG TAB PO (08:03)
[2018-04-01] MEDS: MAGNESIUM OXIDE 400 MG TAB (MAG-OX) PO (08:03)
[2018-04-01] MEDS: FAMOTIDINE 20 MG TAB PO (08:03)
[2018-04-01] MEDS: VITAMIN D 1,000 INTERNATIONAL UNITS TABLET PO (08:03)
[2018-04-01] MEDS: ATORVASTATIN 20 MG TAB PO (08:03)
[2018-04-01] MEDS: LEVEMIR (INSULIN DETEMIR) 1 UNITS/0.01ML SC (08:04)
[2018-04-01] MEDS: ADVAIR HFA 115/21MCG INHALER INH (09:07)
[2018-04-01] MEDS: TIOTROPIUM INHALER/CAPSULE (SPIRIVA) INH (09:07)
[2018-04-01 11:42] LABS: BEDSIDE GLUCOSE 304 MG/DL (83-110)
== END 2018-04-01 13:33 | disposition home health service (06) | DRG 872 ==
LOC: M PCU 03-28 15:18 → M ED 12:59 → M ED INP 17:57 → M ICU 19:21
PROC: B246ZZ4 Ultrasonography of Right and Left Heart, Transesophageal (ICD-10-PCS; principal; 2018-03-31 09:20)
PROC: 02HV33Z Insertion of Infusion Device into Superior Vena Cava, Percutaneous Approach (ICD-10-PCS; 2018-03-31 17:13)
DX: A41.01 Sepsis due to Methicillin susceptible Staphylococcus aureus (principal); E27.40 Unspecified adrenocortical insufficiency; N17.9 Acute kidney failure, unspecified; I47.2 Ventricular tachycardia; Z66 Do not resuscitate; R65.20 Severe sepsis without septic shock; I50.9 Heart failure, unspecified; F32.9 Major depressive disorder, single episode, unspecified; F41.9 Anxiety disorder, unspecified; J68.4 Chronic respiratory conditions due to chemicals, gases, fumes and vapors; E11.9 Type 2 diabetes mellitus without complications; E78.5 Hyperlipidemia, unspecified; E03.9 Hypothyroidism, unspecified; T38.0X5A Adverse effect of glucocorticoids and synthetic analogues, initial encounter; Z95.810 Presence of automatic (implantable) cardiac defibrillator; Z91.041 Radiographic dye allergy status; Z88.8 Allergy status to other drugs, medicaments and biological substances; Z79.4 Long term (current) use of insulin; Z79.52 Long term (current) use of systemic steroids; Z79.82 Long term (current) use of aspirin; Z79.51 Long term (current) use of inhaled steroids; Z87.891 Personal history of nicotine dependence

== ENCOUNTER → 2018-04-05 | Outpatient (REF) | payer MEDICARE, BC, OTHER ==
[2018-04-05 15:11] LABS: BASO % 0.2 % (0.0-1.0); EOS # 0.1 10^3/uL (0.0-0.50); EOS % 0.8 % (0.0-3.0); HEMATOCRIT 30.2 % (42.0-52.0); HEMOGLOBIN 10.2 g/dl (13.5-17.5); IMMATURE GRANULOCYTE % 1.4 % (0-3.0); LYMPH # 1.2 10^3/uL (1.5-4.5); LYMPH % 13.3 % (24.0-44.0); MEAN CORPUSCULAR HGB CONC 33.8 g/dl (32.0-36.5); MEAN CORPUSCULAR VOLUME 88.8 fl (80.0-96.0); MONO # 0.8 10^3/uL (0.0-0.8); MONO % 8.8 % (0.0-5.0); NEUTROPHILS # 7.1 10^3/uL (1.8-7.7); NEUTROPHILS % 75.5 % (36.0-66.0); PLATELET COUNT, AUTOMATED 196 10^3/uL (150-450); RED CELL DISTRIBUTION WIDTH 13.9 % (11.5-14.5); WHITE BLOOD COUNT 9.3 10^3/uL (4.0-10.0)
[2018-04-05 15:32] LABS: ALBUMIN 2.8 GM/DL (3.2-5.2); ALBUMIN/GLOBULIN RATIO 0.82 (1.00-1.93); ALKALINE PHOSPHATASE 101 U/L (45-117); ALT/SGPT 12 U/L (12-78); ANION GAP 10 MEQ/L (8-16); AST/SGOT 14 U/L (7-37); BILIRUBIN,TOTAL 0.3 MG/DL (0.2-1.0); BLOOD UREA NITROGEN 19 MG/DL (7-18); C REACTIVE PROTEIN QUANTITATIV 2.51 MG/DL (0.00-0.30); CALCIUM LEVEL 8.6 MG/DL (8.8-10.2); CARBON DIOXIDE LEVEL 29 MEQ/L (21-32); CHLORIDE LEVEL 97 MEQ/L (98-107); CPK CREATINE PHOSPHOKINASE 33 U/L (39-308); CREATININE FOR GFR 1.18 MG/DL (0.70-1.30); GLOMERULAR FILTRATION RATE > 60.0 (>35); GLUCOSE, FASTING 298 MG/DL (70-100); POTASSIUM SERUM 3.9 MEQ/L (3.5-5.1); SODIUM LEVEL 136 MEQ/L (136-145); TOTAL PROTEIN 6.2 GM/DL (6.4-8.2)
[2018-04-05 15:42] LABS: ERYTHROCYTE SEDIMENTATION RATE 48 mm/hr (0-20)
== END ==
LOC: M LAB REF 14:45
DX: A41.9 Sepsis, unspecified organism (principal)
CPT/HCPCS: 82550

== ENCOUNTER → 2018-04-12 | Outpatient (REF) | payer MEDICARE, BC, OTHER ==
[2018-04-12 20:19] LABS: BASO % 0.3 % (0.0-1.0); EOS % 0.3 % (0.0-3.0); HEMATOCRIT 33.5 % (42.0-52.0); IMMATURE GRANULOCYTE # 0.1 10^3/uL (0-0); IMMATURE GRANULOCYTE % 0.7 % (0-3.0); LYMPH # 0.6 10^3/uL (1.5-4.5); LYMPH % 8.2 % (24.0-44.0); MEAN CORPUSCULAR HEMOGLOBIN 29.4 pg (27.0-33.0); MEAN CORPUSCULAR HGB CONC 32.8 g/dl (32.0-36.5); MEAN CORPUSCULAR VOLUME 89.6 fl (80.0-96.0); MONO # 0.6 10^3/uL (0.0-0.8); MONO % 8.9 % (0.0-5.0); NEUTROPHILS # 5.7 10^3/uL (1.8-7.7); NEUTROPHILS % 81.6 % (36.0-66.0); PLATELET COUNT, AUTOMATED 107 10^3/uL (150-450); RED BLOOD COUNT 3.74 10^6/uL (4.30-6.10); RED CELL DISTRIBUTION WIDTH 14.1 % (11.5-14.5); WHITE BLOOD COUNT 6.9 10^3/uL (4.0-10.0)
[2018-04-12 20:23] LABS: ALBUMIN 3.3 GM/DL (3.2-5.2); ANION GAP 11 MEQ/L (8-16); BLOOD UREA NITROGEN 34 MG/DL (7-18); C REACTIVE PROTEIN QUANTITATIV 5.62 MG/DL (0.00-0.30); CALCIUM LEVEL 8.8 MG/DL (8.8-10.2); CARBON DIOXIDE LEVEL 26 MEQ/L (21-32); CHLORIDE LEVEL 91 MEQ/L (98-107); CREATININE FOR GFR 1.79 MG/DL (0.70-1.30); GLOMERULAR FILTRATION RATE 38.9 (>35); GLUCOSE, FASTING 365 MG/DL (70-100); NT-PRO BNP 808 PG/ML (<450); POTASSIUM SERUM 4.5 MEQ/L (3.5-5.1); SODIUM LEVEL 128 MEQ/L (136-145)
== END ==
LOC: M LAB REF 19:10
DX: R06.02 Shortness of breath (principal)

== ENCOUNTER → 2018-04-12 | Outpatient (REF) | payer MEDICARE, BC, OTHER ==
[2018-04-12 20:10] LABS: BASO % 0.6 % (0.0-1.0); EOS % 0.3 % (0.0-3.0); HEMATOCRIT 33.4 % (42.0-52.0); IMMATURE GRANULOCYTE % 0.9 % (0-3.0); LYMPH # 0.6 10^3/uL (1.5-4.5); LYMPH % 8.7 % (24.0-44.0); MEAN CORPUSCULAR HEMOGLOBIN 29.5 pg (27.0-33.0); MEAN CORPUSCULAR HGB CONC 32.9 g/dl (32.0-36.5); MEAN CORPUSCULAR VOLUME 89.5 fl (80.0-96.0); MONO # 0.6 10^3/uL (0.0-0.8); NEUTROPHILS # 5.6 10^3/uL (1.8-7.7); NEUTROPHILS % 80.5 % (36.0-66.0); PLATELET COUNT, AUTOMATED 100 10^3/uL (150-450); RED BLOOD COUNT 3.73 10^6/uL (4.30-6.10); RED CELL DISTRIBUTION WIDTH 13.9 % (11.5-14.5); WHITE BLOOD COUNT 6.9 10^3/uL (4.0-10.0)
[2018-04-12 20:24] LABS: ALBUMIN 3.3 GM/DL (3.2-5.2); ALBUMIN/GLOBULIN RATIO 0.79 (1.00-1.93); ALKALINE PHOSPHATASE 94 U/L (45-117); ALT/SGPT 8 U/L (12-78); ANION GAP 10 MEQ/L (8-16); AST/SGOT 9 U/L (7-37); BILIRUBIN,TOTAL 0.4 MG/DL (0.2-1.0); BLOOD UREA NITROGEN 34 MG/DL (7-18); C REACTIVE PROTEIN QUANTITATIV 5.54 MG/DL (0.00-0.30); CALCIUM LEVEL 8.7 MG/DL (8.8-10.2); CARBON DIOXIDE LEVEL 27 MEQ/L (21-32); CHLORIDE LEVEL 91 MEQ/L (98-107); CREATININE FOR GFR 1.84 MG/DL (0.70-1.30); GLOMERULAR FILTRATION RATE 37.7 (>35); GLUCOSE, FASTING 367 MG/DL (70-100); POTASSIUM SERUM 4.5 MEQ/L (3.5-5.1); SODIUM LEVEL 128 MEQ/L (136-145); TOTAL PROTEIN 7.5 GM/DL (6.4-8.2)
[2018-04-12 21:14] LABS: ERYTHROCYTE SEDIMENTATION RATE 58 mm/hr (0-20)
== END ==
LOC: M LAB REF 18:24
DX: R06.02 Shortness of breath (principal)
CPT/HCPCS: 80053

== ENCOUNTER → 2018-04-20 | Outpatient (REF) | payer MEDICARE, OTHER ==
[2018-04-20 13:12] LABS: BASO % 0.4 % (0.0-1.0); EOS # 0.1 10^3/uL (0.0-0.50); EOS % 0.6 % (0.0-3.0); HEMATOCRIT 34.1 % (42.0-52.0); HEMOGLOBIN 11.1 g/dl (13.5-17.5); IMMATURE GRANULOCYTE % 0.8 % (0-3.0); LYMPH # 0.6 10^3/uL (1.5-4.5); LYMPH % 5.5 % (24.0-44.0); MEAN CORPUSCULAR HGB CONC 32.6 g/dl (32.0-36.5); MONO # 0.7 10^3/uL (0.0-0.8); NEUTROPHILS # 8.9 10^3/uL (1.8-7.7); NEUTROPHILS % 85.7 % (36.0-66.0); RED BLOOD COUNT 3.83 10^6/uL (4.30-6.10); RED CELL DISTRIBUTION WIDTH 13.6 % (11.5-14.5); WHITE BLOOD COUNT 10.4 10^3/uL (4.0-10.0)
[2018-04-20 13:49] LABS: PLATELET COUNT, AUTOMATED 89 10^3/uL (150-450); POS COUNT POS FLAG
[2018-04-20 13:50] LABS: IMMATURE PLATELET FRACTION % 21.1 % (0.0-10.9)
[2018-04-20 14:06] LABS: ALBUMIN 3.4 GM/DL (3.2-5.2); ALBUMIN/GLOBULIN RATIO 0.76 (1.00-1.93); ALKALINE PHOSPHATASE 83 U/L (45-117); ALT/SGPT 8 U/L (12-78); ANION GAP 9 MEQ/L (8-16); AST/SGOT 9 U/L (7-37); BILIRUBIN,TOTAL 0.6 MG/DL (0.2-1.0); BLOOD UREA NITROGEN 34 MG/DL (7-18); C REACTIVE PROTEIN QUANTITATIV 5.28 MG/DL (0.00-0.30); CALCIUM LEVEL 9.3 MG/DL (8.8-10.2); CARBON DIOXIDE LEVEL 28 MEQ/L (21-32); CHLORIDE LEVEL 92 MEQ/L (98-107); CPK CREATINE PHOSPHOKINASE 23 U/L (39-308); CREATININE FOR GFR 1.53 MG/DL (0.70-1.30); GLOMERULAR FILTRATION RATE 46.6 (>35); GLUCOSE, FASTING 268 MG/DL (70-100); POTASSIUM SERUM 4.5 MEQ/L (3.5-5.1); SODIUM LEVEL 129 MEQ/L (136-145); TOTAL PROTEIN 7.9 GM/DL (6.4-8.2)
[2018-04-20 14:54] LABS: ERYTHROCYTE SEDIMENTATION RATE 65 mm/hr (0-20)
== END ==
LOC: M LAB REF 12:35
DX: R78.81 Bacteremia (principal); N18.3 Chronic kidney disease, stage 3 (moderate); E11.9 Type 2 diabetes mellitus without complications; I50.20 Unspecified systolic (congestive) heart failure
CPT/HCPCS: 82550

== ENCOUNTER → 2018-04-26 | Outpatient (REF) | payer MEDICARE, OTHER ==
[2018-04-26 14:44] LABS: BASO # 0.1 10^3/uL (0.0-0.2); BASO % 0.4 % (0.0-1.0); EOS # 0.1 10^3/uL (0.0-0.50); EOS % 0.8 % (0.0-3.0); HEMATOCRIT 33.7 % (42.0-52.0); HEMOGLOBIN 11.5 g/dl (13.5-17.5); IMMATURE GRANULOCYTE % 1.1 % (0-3.0); LYMPH # 1.1 10^3/uL (1.5-4.5); LYMPH % 8.7 % (24.0-44.0); MEAN CORPUSCULAR HEMOGLOBIN 29.3 pg (27.0-33.0); MEAN CORPUSCULAR HGB CONC 34.1 g/dl (32.0-36.5); MONO # 0.6 10^3/uL (0.0-0.8); MONO % 5.1 % (0.0-5.0); NEUTROPHILS # 10.3 10^3/uL (1.8-7.7); NEUTROPHILS % 83.9 % (36.0-66.0); PLATELET COUNT, AUTOMATED 179 10^3/uL (150-450); RED BLOOD COUNT 3.92 10^6/uL (4.30-6.10); RED CELL DISTRIBUTION WIDTH 13.3 % (11.5-14.5); WHITE BLOOD COUNT 12.2 10^3/uL (4.0-10.0)
[2018-04-26 14:59] LABS: ALBUMIN 3.7 GM/DL (3.2-5.2); ALBUMIN/GLOBULIN RATIO 0.82 (1.00-1.93); ALKALINE PHOSPHATASE 86 U/L (45-117); ALT/SGPT 8 U/L (12-78); ANION GAP 12 MEQ/L (8-16); AST/SGOT 6 U/L (7-37); BILIRUBIN,TOTAL 0.3 MG/DL (0.2-1.0); BLOOD UREA NITROGEN 40 MG/DL (7-18); C REACTIVE PROTEIN QUANTITATIV 1.42 MG/DL (0.00-0.30); CALCIUM LEVEL 9.7 MG/DL (8.8-10.2); CARBON DIOXIDE LEVEL 29 MEQ/L (21-32); CHLORIDE LEVEL 91 MEQ/L (98-107); CPK CREATINE PHOSPHOKINASE 21 U/L (39-308); CREATININE FOR GFR 1.67 MG/DL (0.70-1.30); GLOMERULAR FILTRATION RATE 42.1 (>35); GLUCOSE, FASTING 279 MG/DL (70-100); SODIUM LEVEL 132 MEQ/L (136-145); TOTAL PROTEIN 8.2 GM/DL (6.4-8.2)
[2018-04-26 15:07] LABS: ERYTHROCYTE SEDIMENTATION RATE 53 mm/hr (0-20)
== END ==
LOC: M LAB REF 14:08
DX: A41.9 Sepsis, unspecified organism (principal); N18.3 Chronic kidney disease, stage 3 (moderate); I48.0 Paroxysmal atrial fibrillation
CPT/HCPCS: 82550

== ENCOUNTER → 2018-04-26 | Outpatient (REF) | payer MEDICARE, OTHER ==
[2018-04-26 15:10] LABS: ALBUMIN 3.7 GM/DL (3.2-5.2); ANION GAP 12 MEQ/L (8-16); BLOOD UREA NITROGEN 41 MG/DL (7-18); CALCIUM LEVEL 9.7 MG/DL (8.8-10.2); CARBON DIOXIDE LEVEL 27 MEQ/L (21-32); CHLORIDE LEVEL 91 MEQ/L (98-107); CREATININE FOR GFR 1.72 MG/DL (0.70-1.30); DIGOXIN LEVEL 0.7 NG/ML (0.5-2.0); GLOMERULAR FILTRATION RATE 40.7 (>35); GLUCOSE, FASTING 267 MG/DL (70-100); PHOSPHORUS LEVEL 2.9 MG/DL (2.5-4.9); SODIUM LEVEL 130 MEQ/L (136-145)
== END ==
LOC: M LAB REF 14:10
DX: N18.3 Chronic kidney disease, stage 3 (moderate) (principal); I48.0 Paroxysmal atrial fibrillation

== ENCOUNTER 2018-08-27 11:54 | Inpatient (IN) | payer MEDICARE, BC, OTHER ==
[~2018-08-27] VITALS: Ht 175.3 cm; Wt 73.8 kg
[~2018-08-27 11:54] MED LIST changes: +ACET500T15 PO; -ACET50TAOT PO; +NITR0.3S SL; -NITR3TA SL; +PRED10TA2 PO; +RANI300C PO; +SPIR-10 PO; -SPIR25TA2 PO
[2018-08-27 12:30] LABS: VENOUS BASE EXCESS -0.1 (-2.0-2.0); VENOUS HCO3 24.3 MEQ/L (23.0-27.0); VENOUS O2 SATURATION 83.5 % (60.0-80.0); VENOUS PARTIAL PRESSURE CO2 38.8 mmHg (38.0-50.0); VENOUS PARTIAL PRESSURE O2 48.5 mmHg (30.0-50.0); VENOUS PH 7.414 UNITS (7.330-7.430); VENOUS STANDARD HCO3 24.1 MEQ/L; VENOUS TOTAL CO2 25.5 MEQ/L (24.0-28.0)
[2018-08-27] MEDS ORDERED: NS 500 ML IV ONE (12:30)
[2018-08-27] MEDS ORDERED: IPRATROPIUM 0.5MG/ALBUTEROL 2.5MG INH SOL UD 3ML (DUONEB)(J7620) NEB ONE (12:30)
[2018-08-27 12:32] LABS: BASO # 0.1 10^3/uL (0.0-0.2); BASO % 0.3 % (0.0-1.0); EOS % 0.1 % (0.0-3.0); HEMATOCRIT 39.1 % (42.0-52.0); HEMOGLOBIN 13.4 g/dl (13.5-17.5); LYMPH # 0.4 10^3/uL (1.5-4.5); LYMPH % 2.2 % (24.0-44.0); MEAN CORPUSCULAR HEMOGLOBIN 30.2 pg (27.0-33.0); MEAN CORPUSCULAR HGB CONC 34.3 g/dl (32.0-36.5); MEAN CORPUSCULAR VOLUME 88.3 fl (80.0-96.0); MONO # 1.8 10^3/uL (0.0-0.8); NEUTROPHILS # 17.5 10^3/uL (1.8-7.7); NEUTROPHILS % 87.8 % (36.0-66.0); PLATELET COUNT, AUTOMATED 261 10^3/uL (150-450); RED BLOOD COUNT 4.43 10^6/uL (4.30-6.10); WHITE BLOOD COUNT 19.9 10^3/uL (4.0-10.0)
[2018-08-27 12:54] LABS: ALBUMIN 3.1 GM/DL (3.2-5.2); ALT/SGPT 11 U/L (12-78); BILIRUBIN,DIRECT 0.2 MG/DL (0.0-0.2); BILIRUBIN,TOTAL 0.7 MG/DL (0.2-1.0); BLOOD UREA NITROGEN 31 MG/DL (7-18); CARBON DIOXIDE LEVEL 22 MEQ/L (21-32); CHLORIDE LEVEL 94 MEQ/L (98-107); CPK CREATINE PHOSPHOKINASE 43 U/L (39-308); CREATININE FOR GFR 1.78 MG/DL (0.70-1.30); DIGOXIN LEVEL 0.5 NG/ML (0.5-2.0); GLOMERULAR FILTRATION RATE 39.1 (>35); GLUCOSE, FASTING 298 MG/DL (70-100); MAGNESIUM LEVEL 2.1 MG/DL (1.8-2.4); MB/CK RELATIVE INDEX 3.72 (< OR =4); NT-PRO BNP 2018 PG/ML (<450); POTASSIUM SERUM 4.2 MEQ/L (3.5-5.1); SODIUM LEVEL 130 MEQ/L (136-145); TOTAL PROTEIN 7.3 GM/DL (6.4-8.2); TROPONIN I < 0.02 NG/ML (< 0.10)
--- NOTE | 2018-08-27 12:55 | REP ---
Clinical: Shortness of breath. Comparison: 03/30/2018. Findings: COPD and chronic interstitial changes are again appreciated. Subtle superimposed left lower lobe atelectasis/infiltrate cannot be excluded. No effusion. No pneumothorax. Mediastinum and cardiac silhouette are within normal limits and stable. Skeletal structures intact. Impression: COPD and chronic interstitial changes with subtle superimposed left lower lobe atelectasis/infiltrate. Electronically Signed by Denny Cummings MD 08/27/2018 12:47 P
--- NOTE | 2018-08-27 13:49 | REP ---
Clinical: Cough and dyspnea. Technique: Axial noncontrast images from the thoracic inlet to the upper abdomen with coronal and sagittal re-formations. Comparison: 04/25/2017. Findings: Chronic emphysematous changes as well as scattered mild/moderate predominately subpleural and bibasilar fibrotic changes along with bronchiectasis again noted and similar to prior examination. Subtle superimposed left lower lobe air space disease suggests atelectasis versus early pneumonia. No effusion. No pneumothorax. Mediastinum demonstrates atherosclerotic changes to the thoracic aorta and coronary arteries without aortic aneurysm or cardiomegaly. No pericardial effusion. Reactive mediastinal lymph nodes measure up to approximately 11 mm. Limited upper abdomen demonstrates normal bilateral adrenal glands and cholelithiasis. Musculoskeletal structures without focal osseous abnormality. Impression: 1. Chronic emphysematous and fibrotic changes with bronchiectasis similar to prior examination. 2. Subtle superimposed acute left lower lobe air space disease suggesting atelectasis and/or early pneumonia. Electronically Signed by Denny Cummings MD 08/27/2018 01:40 P
[2018-08-27] MEDS ORDERED: cefTRIAXone SOD 1 GM in D5W MINI-BAG PLUS 50 ML IV ONE (14:15)
[2018-08-27] MEDS ORDERED: TESS100C PO (14:54)
[2018-08-27] MEDS ORDERED: BENZONATATE 100 MG CAP PO PRN (15:15)
[2018-08-27] MEDS ORDERED: GLUCAGON FOR INJ 1 MG VIAL (J1610) SC PRN (15:15)
[2018-08-27] MEDS ORDERED: IPRATROPIUM 0.5MG/ALBUTEROL 2.5MG INH SOL UD 3ML (DUONEB)(J7620) NEB PRN (15:15)
[2018-08-27] MEDS ORDERED: GLUCOSE 4 GM CHEW TABLET PO PRN (15:15)
[2018-08-27] MEDS ORDERED: ALPRAZolam 0.5 MG TAB PO PRN (15:15)
[2018-08-27] MEDS ORDERED: ACETAMINOPHEN TAB 650MG DOSE (2X325MG) PO PRN (15:15)
[2018-08-27] MEDS ORDERED: DEXTROSE 50% 50 ML SYRINGE IV PRN (15:15)
[2018-08-27] MEDS ORDERED: ONDANSETRON 4MG/2ML VIAL (J2405) IV PRN (15:15)
--- NOTE | 2018-08-27 15:41 | HPE ---
DATE OF ADMISSION: 08/27/2018 PRIMARY CARE PROVIDER: Dr. Noah James Jr. DIMENSIONAL ENGINEER: Dr. Bharath Atkinson ATTENDING PHYSICIAN: Dr. Fox Vigil CHIEF COMPLAINT: Worsening shortness of breath, cough, and hypoxia. HISTORY OF PRESENT ILLNESS: The patient is an 82-year-old white male with several chronic medical conditions listed below, came to the emergency room (ER) for evaluation of above complaints. History is provided by himself, as well as by his who is with him in the ER. Per the patient, he has chronic obstructive pulmonary disease (COPD) and pulmonary fibrosis and for that he is using 3.5 liters oxygen supplement 24 hours at home. He is also taking prednisone 5 mg chronically. He states in the past 1 week he has become more short of breath, particularly when he moves around. Also, he has worsening coughing with some phlegm. He denies fever or chills. His oxygen is down to 88% when he was sitting on 3 liters supplement and went down more when he was trying to ambulate. In the ER, he had a chest x-ray as well as chest CT done which demonstrated he may have bronchitis and possible early pneumonia, so he was given IV antibiotics in the ER. Meanwhile, medicine service was called for admission. REVIEW OF SYSTEMS: Denies fever, no chills. No headache, no blurred vision. Positive shortness of breath, positive coughing, but no chest pain. No runny nose, no sore throat. Positive nausea, but no vomiting. No abdominal pain, no diarrhea. No tingling, numbness, or weakness in arms or lower extremities. All other systems reviewed, but negative. PAST MEDICAL HISTORY: 1. COPD and pulmonary fibrosis, questionable secondary to amiodarone use in the past. 2. Chronic congestive heart failure (CHF). Ejection fraction (EF) is 40%. 3. Type 2 diabetes. 4. Chronic kidney disease (CKD) stage III. 5. Coronary artery disease status post stenting in 2011. 6. Hypertension. 7. Dyslipidemia. 8. Hypothyroidism. 9. Chronic respiratory failure on 3 liters oxygen supplement at home. PAST SURGICAL HISTORY: Hernia repair, cardiac stents, pacemaker placement. ALLERGIES: IV DYE. SOCIAL HISTORY: He smoked two packs a day for more than 30 years, quit in 2011. No alcohol abuse. No illicit drug abuse. He is living with his at home. He is DO NOT RESUSCITATE/DO NOT INTUBATE. FAMILY HISTORY: His father from COPD and his sister and brother have heart problems. MEDICATIONS: - torsemide 20 mg by mouth daily - spironolactone 25 mg by mouth daily - Zoloft 50 mg by mouth daily - albuterol as needed - Advair Diskus one puff twice a day - Synthroid 75 mcg by mouth daily - magnesium oxide 400 mg by mouth twice a day - Pepcid 300 mg by mouth daily - Cardizem CD 120 mg by mouth twice a day - digoxin 0.125 mg by mouth daily - Xanax 0.5 mg by mouth nightly as needed - aspirin 81 mg by mouth daily - atorvastatin 20 mg by mouth daily - insulin 20 units in the morning, 18 units in the afternoon PHYSICAL EXAMINATION: VITAL SIGNS: Temperature 97.5, heart rate 85, respiratory rate 16, blood pressure 113/62, oxygen saturation 90% on 3 liters oxygen supplement. GENERAL: He is awake, alert, oriented times three. He is in mild respiratory distress. HEENT: Atraumatic. Pupils equal, round, reactive to light. No jaundice. Extraocular muscles intact. Ears, nose, and throat normal. Mouth: Mucosa a little bit dry. NECK: No jugular venous distention (JVD), no bruits. LUNGS: Decreased breath sounds bilateral, bibasilar crackles, no wheezing. HEART: S1, S2, regular, no murmur. ABDOMEN: Soft, bowel sounds positive, nontender. LOWER EXTREMITIES: No edema in bilateral lower extremities. SKIN: No rash. PSYCHOLOGIC: No acute psychosis. NEUROLOGIC: Nonfocal. DIAGNOSTIC AND LABORATORIES: Include the following: CBC and differential: WBC 19.9, hemoglobin and hematocrit 13.4/39.1, platelets 261, sodium 130, potassium 4.2, chloride 94, bicarbonate 22, BUN 31, creatinine 1.7, glucose 298. Chest x-ray as well as chest CT was reviewed. IMPRESSION: 1. Acute on chronic respiratory failure. 2. Chronic obstructive pulmonary disease (COPD) and pulmonary fibrosis exacerbation. 3. Right-sided lower lobe pneumonia. 4. Type 2 diabetes. 5. Coronary artery disease. 6. Chronic diastolic congestive heart failure (CHF). 7. Hyponatremia, which is chronic. PLAN: Patient will be admitted to medical/surgical floor. I will treat him with steroid, antibiotics, Zosyn and doxycycline, as well as nebulizers. Will continue most his home medications. His sodium is 130 which is chronic and will continue to monitor his basic metabolic panel (BMP). Heparin will be given for deep venous thrombosis (DVT) prophylaxis. MTDD
[2018-08-27] MEDS: IPRATROPIUM 0.5MG/ALBUTEROL 2.5MG INH SOL UD 3ML (DUONEB)(J7620) NEB SCH ×2 (16:00→22:27)
[2018-08-27] MEDS: methylPREDNISolone INJ 40 MG/1 ML VIAL (J2920) IV SCH ×2 (16:00→23:44)
[2018-08-27] MEDS: NS 1,000 ML IV SCH (16:21)
[2018-08-27] MEDS: DOXYCYCLINE HYCLATE 100 MG in D5W MINI-BAG PLUS 100 ML IV SCH (16:21)
[2018-08-27] MEDS: HumaLOG INSULIN (NovoLOG) PER UNIT SC SCH ×2 (17:56→22:22)
[2018-08-27] MEDS: PIPERACILLIN/TAZOBACTAM SOD 3.375 GM in D5W MINI-BAG PLUS 50 ML IV SCH (17:58)
--- NOTE | 2018-08-27 18:21 | ECGEPIP ---
Stationary ECG Study [facility] - ED Test Date: 2018-08-27 Pat Name: DAPHNE OCHOA Department: Room: - Gender: M Tape Calender: [facility] : 1935 Requested By: ANTOLIN Castro Order Number: [id number] Reading MD: Martha Solomon Measurements Intervals [place] Rate: 89 P: 41 [place]: 165 QRS: 142 QRSD: 118 T: 33 QT: 372 QTc: 453 Interpretive Statements ELECTRONIC VENTRICULAR PACEMAKER ABNORMAL RHYTHM ECG LOW VOLTAGE LIMB SINUS RHYTHM Electronically Signed On 08-27-2018 18:21:05 EST by Martha Solomon
[2018-08-27 20:00] VITALS: BP 141/69
[2018-08-27 20:25] VITALS: BP 141/69
[2018-08-27] MEDS: SENOKOT S TAB PO SCH (21:00)
[2018-08-27] MEDS ORDERED: NovoLOG MIX 70/30 PER UNIT SC SCH (21:00)
[2018-08-27] MEDS: MAGNESIUM OXIDE 400 MG TAB (MAG-OX) PO SCH (22:21)
[2018-08-27] MEDS: HEPARIN SOD (PORCINE) 5000 UNITS/ML VIAL SC SCH (22:22)
[2018-08-28] MEDS: ADVAIR HFA 115/21MCG INHALER INH SCH ×3 (00:23→19:57)
[2018-08-28] MEDS: PIPERACILLIN/TAZOBACTAM SOD 3.375 GM in D5W MINI-BAG PLUS 50 ML IV SCH ×3 (02:59→17:33)
[2018-08-28] MEDS: NS 1,000 ML IV SCH ×2 (04:24→05:26)
[2018-08-28] MEDS: DOXYCYCLINE HYCLATE 100 MG in D5W MINI-BAG PLUS 100 ML IV SCH (04:30)
[2018-08-28] MEDS: LEVOTHYROXINE 75MCG TABLET (0.075MG) PO SCH (05:26)
[2018-08-28] MEDS: HEPARIN SOD (PORCINE) 5000 UNITS/ML VIAL SC SCH ×3 (05:26→22:31)
[2018-08-28 06:00] VITALS: BP 137/65
[2018-08-28 06:17] LABS: BASO % 0.2 % (0.0-1.0); HEMATOCRIT 36.5 % (42.0-52.0); HEMOGLOBIN 12.3 g/dl (13.5-17.5); MEAN CORPUSCULAR HEMOGLOBIN 30.1 pg (27.0-33.0); MEAN CORPUSCULAR HGB CONC 33.7 g/dl (32.0-36.5); MEAN CORPUSCULAR VOLUME 89.2 fl (80.0-96.0); MONO # 0.2 10^3/uL (0.0-0.8); MONO % 2.1 % (0.0-5.0); NEUTROPHILS # 10.7 10^3/uL (1.8-7.7); PLATELET COUNT, AUTOMATED 226 10^3/uL (150-450); RED BLOOD COUNT 4.09 10^6/uL (4.30-6.10); WHITE BLOOD COUNT 11.3 10^3/uL (4.0-10.0)
[2018-08-28 06:39] LABS: LYMPH # 0.2 10^3/uL (1.5-4.5)
[2018-08-28 06:45] LABS: CALCIUM LEVEL 9.5 MG/DL (8.8-10.2); CREATININE FOR GFR 1.64 MG/DL (0.70-1.30); POTASSIUM SERUM 3.9 MEQ/L (3.5-5.1)
[2018-08-28] MEDS: IPRATROPIUM 0.5MG/ALBUTEROL 2.5MG INH SOL UD 3ML (DUONEB)(J7620) NEB SCH ×4 (08:00→19:57)
[2018-08-28] MEDS: LEVEMIR (INSULIN DETEMIR) 1 UNITS/0.01ML SC SCH (08:59)
[2018-08-28] MEDS: methylPREDNISolone INJ 40 MG/1 ML VIAL (J2920) IV SCH (09:00)
[2018-08-28] MEDS ORDERED: SPIRONOLACTONE 25 MG TAB PO SCH (09:00)
[2018-08-28] MEDS ORDERED: TORSEMIDE 20 MG TAB PO SCH (09:00)
[2018-08-28] MEDS ORDERED: DIGOXIN 0.125 MG TAB PO SCH (09:00)
[2018-08-28] MEDS ORDERED: NovoLOG MIX 70/30 PER UNIT SC SCH (09:00)
[2018-08-28] MEDS: HumaLOG INSULIN (NovoLOG) PER UNIT SC SCH ×4 (09:00→22:32)
[2018-08-28] MEDS: SENOKOT S TAB PO SCH ×2 (09:02→22:31)
[2018-08-28] MEDS: ASPIRIN 81 MG ENTERIC TAB PO SCH (09:03)
[2018-08-28] MEDS: MAGNESIUM OXIDE 400 MG TAB (MAG-OX) PO SCH ×2 (09:03→22:31)
[2018-08-28] MEDS: VITAMIN D 1,000 INTERNATIONAL UNITS TABLET PO SCH (09:04)
[2018-08-28] MEDS: ATORVASTATIN 20 MG TAB PO SCH (09:04)
[2018-08-28] MEDS: FAMOTIDINE 20 MG TAB PO SCH (09:05)
[2018-08-28] MEDS: SERTRALINE HCL 50 MG TAB PO SCH (09:05)
--- NOTE | 2018-08-28 13:46 | IPNPDOC ---
Date Seen The patient was seen on 08/28/18. Progress Note SUBJECTIVE: Patient was seen and examined this morning. His and son were at bedside. He states she's feeling very well compared to yesterday. His shortness of breath and chest tightness has improved significantly since being admitted. He would like to know when he can discharge for he hates being in hospitals longer than he needs to be here. There is no overnight events reported. His suga rs were slightly elevated this morning so adjustments were made for his Levemir. No other changes were made. Patient denies current chest pain worsening shortness of breath or trouble breathing nausea vomiting diarrhea. He has a good appetite and is tolerating his medications well. OBJECTIVE PHYSICAL EXAMINATION: VITAL SIGNS: Please see below. GENERAL: He is awake, alert, oriented times three. Does not appear in any acute distress HEENT: Atraumatic. Pupils equal, round, reactive to light. No jaundice. Extraocular muscles intact. Ears, nose, and throat normal. No JVD no bruits. LUNGS: Diminished breath sounds bilaterally very minimal aeration appreciated at the midline bibasilar crackles still noted but no wheezing. HEART: S1, S2, regular, no audible murmur. ABDOMEN: Soft, bowel sounds positive, nontender. LOWER EXTREMITIES: No edema in bilateral lower extremities. LABORATORY DATA, IMAGING STUDIES, MICROBIOLOGY: Please see below. DVT prophylaxis ordered?: Heparin ASSESSMENT AND PLAN:82-year-old white male with several chronic medical conditions presented for worsening shortness of breath, cough, and hypoxia. PROBLEMS: Acute on chronic respiratory failure -Left-sided lower lobe pneumonia as well as chronic obstructive pulmonary disease (COPD) exacerbation. -Chest x-ray shows subtle superimposed acute lower lobe airspace disease -Leukocytosis improving and afebrile -Respiratory panel negative -Sputum and Blood cultures, urine strep pneumonia antigen and Legionella antigen urine pending -Prednisone taper -Continue with Zosyn, as well as the nebulizer and inhalers Hx of Pulmonary fibrosis -Secondary to amiodarone use in the past. -at home takes prednisone 5 mg daily. -Is given a stress dose of 40 mg IV Solu-Medrol -Will monitor for adrenal insufficiency currently on a prednisone taper Hyponatremia -appears chronic in nature -Will check Legionella urine Type 2 diabetes. -c/w Levemir and ISS. -Will need to consider adjustment of sugars while on steroid taper -Hold home NovoLog mix 70/30 Coronary artery disease -c/w atorvastatin, aspirin, Chronic diastolic congestive heart failure (CHF). -c/w digoxin and diltiazem -Because of history of diastolic congestive heart failure he has gotten 2 L of normal saline since admitted. We'll monitor his fluid status and encourage good by mouth intake with a fluid restriction of 1800 mL/24 hours History of hypothyroidism -c/w Synthroid History of anxiety -c/w Xanax when necessary, and Zoloft History of acid reflux -c/w Pepcid DVT prophylaxis -heparin VS, I&O, 24H, Fishbone Vital Signs/I&O Vital Signs Date Time Temp Pulse Resp B/P (MAP) Pulse Ox O2 Delivery O2 Flow Rate FiO2 08/28/18 09:04 86 137/65 08/28/18 06:00 98.9 19 96 Nasal Cannula 3.0 I&O- Last 24 Hours up to 6 AM 08/28/18 06:00 Intake Total 1960 ml Output Total 600 ml Balance 1360 ml Laboratory Data 24H LABS Laboratory Tests 2 08/27/18 17:41: Bedside Glucose (Misc Panel) 383H 08/27/18 20:32: Bedside Glucose (Misc Panel) 431H 08/28/18 05:45: Immature Granulocyte % (Auto) 0.7, White Blood Count 11.3H, Red Blood Count 4.09L, Hemoglobin 12.3L, Hematocrit 36.5L, Mean Corpuscular Volume 89.2, Mean Corpuscular Hemoglobin 30.1, Mean Corpuscular Hemoglobin Concent 33.7, Red Cell Distribution Width 13.2, Platelet Count 226, Neutrophils (%) (Auto) 95.0H, Lymphocytes (%) (Auto) 2.0L, Monocytes (%) (Auto) 2.1, Eosinophils (%) (Auto) 0.0, Basophils (%) (Auto) 0.2, Neutrophils # (Auto) 10.7H, Lymphocytes # (Auto) 0.2L, Monocytes # (Auto) 0.2, Eosinophils # (Auto) 0.0, Basophils # (Auto) 0.0, Nucleated Red Blood Cells % (auto) 0.0, Anion Gap 16, Glomerular Filtration Rate 43.0, Blood Urea Nitrogen 35H, Creatinine 1.64H, Sodium Level 129L, Potassium Level 3.9, Chloride Level 94L, Carbon Dioxide Level 19L, Calcium Level 9.5 08/28/18 08:31: Lactic Acid Level 2.0, C-Reactive Protein, Quantitative 26.10H 08/28/18 13:14: Bedside Glucose (Misc Panel) 453H CBC/BMP Laboratory Tests 08/28/18 05:45 Red Blood Count 4.09 L, Mean Corpuscular Volume 89.2, Mean Corpuscular Hemoglobin 30.1, Mean Corpuscular Hemoglobin Concent 33.7, Red Cell Distribution Width 13.2, Neutrophils (%) (Auto) 95.0 H, Lymphocytes (%) (Auto) 2.0 L, Monocytes (%) (Auto) 2.1, Eosinophils (%) (Auto) 0.0, Basophils (%) (Auto) 0.2, Neutrophils # (Auto) 10.7 H, Lymphocytes # (Auto) 0.2 L, Monocytes # (Auto) 0.2, Eosinophils # (Auto) 0.0, Basophils # (Auto) 0.0, Calcium Level 9.5 Microbiology Microbiology 08/27/18 Blood Culture, Received Pending 08/27/18 Blood Culture - Preliminary, Resulted No growth after 24 hours . All specim... 08/27/18 Respiratory Virus Panel (PCR) (RAD[facility]) - Final, Complete GME ATTESTATION GME ATTESTATION My faculty preceptor for this patient encounter was physically present during the encounter and was fully available. All aspects of the patient interview, examination, medical decision making process, and medical care plan development were reviewed and approved by the faculty preceptor. The faculty preceptor is aware and concurs with the plan as stated in the body of this note and will attest to such by his/her cosignature. MARVEL WILSON DO Aug 28, 2018 13:46
[2018-08-28 14:00] VITALS: BP 137/70
[2018-08-28 14:05] LABS: BASO % 0.2 % (0.0-1.0); HEMATOCRIT 36.3 % (42.0-52.0); HEMOGLOBIN 12.5 g/dl (13.5-17.5); LYMPH % 1.4 % (24.0-44.0); MEAN CORPUSCULAR HEMOGLOBIN 30.5 pg (27.0-33.0); MEAN CORPUSCULAR HGB CONC 34.4 g/dl (32.0-36.5); MEAN CORPUSCULAR VOLUME 88.5 fl (80.0-96.0); MONO # 0.7 10^3/uL (0.0-0.8); MONO % 3.9 % (0.0-5.0); NEUTROPHILS # 15.5 10^3/uL (1.8-7.7); NEUTROPHILS % 93.4 % (36.0-66.0); PLATELET COUNT, AUTOMATED 279 10^3/uL (150-450); WHITE BLOOD COUNT 16.6 10^3/uL (4.0-10.0)
[2018-08-28] MEDS: predniSONE 20 MG TAB PO SCH (14:18)
[2018-08-28 14:28] LABS: CALCIUM LEVEL 9.3 MG/DL (8.8-10.2); CREATININE FOR GFR 1.68 MG/DL (0.70-1.30); GLOMERULAR FILTRATION RATE 41.9 (>35)
[2018-08-28 14:53] LABS: LYMPH # 0.2 10^3/uL (1.5-4.5)
[2018-08-28 22:00] VITALS: BP 132/61
[2018-08-28] MEDS ORDERED: HEPARIN SOD (PORCINE) 5000 UNITS/ML VIAL As Ordered ONE (22:25)
[2018-08-29] MEDS: PIPERACILLIN/TAZOBACTAM SOD 3.375 GM in D5W MINI-BAG PLUS 50 ML IV SCH ×2 (02:15→09:26)
[2018-08-29] MEDS: LEVOTHYROXINE 75MCG TABLET (0.075MG) PO SCH (05:40)
[2018-08-29] MEDS: HEPARIN SOD (PORCINE) 5000 UNITS/ML VIAL SC SCH (05:40)
[2018-08-29 06:00] VITALS: BP 127/63
[2018-08-29 06:31] LABS: BASO % 0.2 % (0.0-1.0); HEMATOCRIT 32.9 % (42.0-52.0); HEMOGLOBIN 11.2 g/dl (13.5-17.5); LYMPH # 0.4 10^3/uL (1.5-4.5); LYMPH % 3.4 % (24.0-44.0); MEAN CORPUSCULAR HEMOGLOBIN 30.4 pg (27.0-33.0); MEAN CORPUSCULAR VOLUME 89.2 fl (80.0-96.0); MONO # 0.7 10^3/uL (0.0-0.8); MONO % 5.9 % (0.0-5.0); NEUTROPHILS # 10.6 10^3/uL (1.8-7.7); NEUTROPHILS % 89.3 % (36.0-66.0); PLATELET COUNT, AUTOMATED 238 10^3/uL (150-450); RED BLOOD COUNT 3.69 10^6/uL (4.30-6.10); WHITE BLOOD COUNT 11.9 10^3/uL (4.0-10.0)
[2018-08-29 06:58] LABS: CALCIUM LEVEL 9.1 MG/DL (8.8-10.2); CREATININE FOR GFR 1.41 MG/DL (0.70-1.30); GLOMERULAR FILTRATION RATE 51.2 (>35); POTASSIUM SERUM 4.2 MEQ/L (3.5-5.1)
[2018-08-29] MEDS: HumaLOG INSULIN (NovoLOG) PER UNIT SC SCH ×2 (07:30→12:00)
[2018-08-29] MEDS ORDERED: TIOTROPIUM INHALER/CAPSULE (SPIRIVA) INH SCH (08:00)
[2018-08-29] MEDS: IPRATROPIUM 0.5MG/ALBUTEROL 2.5MG INH SOL UD 3ML (DUONEB)(J7620) NEB SCH ×2 (08:00→12:00)
[2018-08-29] MEDS: LEVEMIR (INSULIN DETEMIR) 1 UNITS/0.01ML SC SCH (09:00)
[2018-08-29] MEDS: ATORVASTATIN 20 MG TAB PO SCH (09:25)
[2018-08-29] MEDS: predniSONE 20 MG TAB PO SCH (09:25)
[2018-08-29] MEDS: FAMOTIDINE 20 MG TAB PO SCH (09:25)
[2018-08-29 09:26] VITALS: BP 127/63
[2018-08-29] MEDS: MAGNESIUM OXIDE 400 MG TAB (MAG-OX) PO SCH (09:26)
[2018-08-29] MEDS: SERTRALINE HCL 50 MG TAB PO SCH (09:26)
[2018-08-29] MEDS: ASPIRIN 81 MG ENTERIC TAB PO SCH (09:26)
[2018-08-29] MEDS: SENOKOT S TAB PO SCH (09:26)
[2018-08-29] MEDS: VITAMIN D 1,000 INTERNATIONAL UNITS TABLET PO SCH (09:26)
[2018-08-29] MEDS: ADVAIR HFA 115/21MCG INHALER INH SCH (09:30)
[2018-08-29] MEDS ORDERED: CEFD1CAP8 PO (10:34)
[2018-08-29] MEDS ORDERED: PRED10TA2 PO (10:34)
--- NOTE | 2018-08-29 15:01 | DS.PDOC ---
Discharge Summary General Date of Admission Aug 27, 2018 at 15:04 Date of Discharge 08/29/2018 Primary Care Physician: Jr Rogers Collins Discharge Summary PROCEDURES PERFORMED DURING STAY: EK08/27/2018 ELECTRONIC VENTRICULAR PACEMAKER ABNORMAL RHYTHM ECG LOW VOLTAGE LIMB SINUS RHYTHM ADMITTING DIAGNOSES: Acute on chronic respiratory failure. Chronic obstructive pulmonary disease (COPD) and pulmonary fibrosis exacerbation. Right-sided lower lobe pneumonia Type 2 diabetes. Coronary artery disease. Chronic diastolic congestive heart failure (CHF). Hyponatremia, which is chronic. DISCHARGE DIAGNOSES: Acute on Chronic obstructive pulmonary disease (COPD) Community acquired pneumonia - left lower lobe Hx of Pulmonary fibrosis Hyponatremia Type 2 diabetes. Coronary artery disease Chronic diastolic congestive heart failure (CHF). History of hypothyroidism History of paroxysmal atrial fibrillation documented on 04/01/2018 echocardiogram History of anxiety History of acid reflux COMPLICATIONS/CHIEF COMPLAINT: Pneumonia. HISTORY OF PRESENT ILLNESS:The patient is an 82-year-old white male with several chronic medical conditions listed below, came to the emergency room (ER) for evaluation of above complaints. History is provided by himself, as well as by his who is with him in the ER. Per the patient, he has chronic obstructive pulmonary disease (COPD) and pulmonary fibrosis and for that he is using 3.5 liters oxygen supplement 24 hours at home. He is also taking prednisone 5 mg chronically. He states in the past 1 week he has become more short of breath, particularly when he moves around. Also, he has worsening coughing with some phlegm. He denies fever or chills. His oxygen is down to 88% when he was sitting on 3 liters supplement and went down more when he was trying to ambulate. In the ER, he had a chest x-ray as well as chest CT done which demonstrated he may have bronchitis and possible early pneumonia, so he was given IV antibiotics in the ER. Meanwhile, medicine service was called for admission. HOSPITAL COURSE: The patient was admitted to [facility] for worsening shortness of breath cough and hypoxia. Chest x-ray showed subtle superimposed acute lower lobe airspace disease. CT of the chest showed possible early pneumonia and he was started on Zosyn as well as nebulizer inhalers. While he was admitted his leukocytosis improved his respiratory panel, sputum and blood cultures were negative. He was also started on a prednisone taper to help with his COPD exacerbation. Because he was given a stress dose in the ER his Levemir and insulin sliding scales were adjusted for tighter glycemic control. On the day of discharge the patient was clinically improving and was eager to go home. He was discharged on Ceftin ear twice a day for 4 days and to continue the prednisone taper until his daily 5 mg of prednisone. His advised to follow-up with his PCP within a week and to call his PCP or return to the ER if his symptoms return or worsen. He was agreeable to this plan and had no complaints. DISCHARGE MEDICATIONS: Please see below. ALLERGIES: Please see below. PHYSICAL EXAMINATION ON DISCHARGE: VITAL SIGNS: Please see below. GENERAL: awake, alert, oriented times three. Does not appear in any acute distress . laying comfortable in the bed HEENT: Atraumatic. Pupils equal, round, reactive to light. No jaundice. Ex traocular muscles intact. Ears, nose, and throat normal. No JVD no bruits. LUNGS: Clear aeration appreciated on the right lobes. Diminished breath sounds in the right. bibasilar crackles still noted but no wheezing. HEART: Regular rate S1-S2 sounds are normal, no audible murmur. ABDOMEN: Soft, bowel sounds positive, nontender. LOWER EXTREMITIES: No edema in bilateral lower extremities. LABORATORY DATA: Please see below. IMAGIN08/27/2018 Chest x-ray Impression: COPD and chronic interstitial changes with subtle superimposed left lower lobe atelectasis/infiltrate. CT chest 1. Chronic emphysematous and fibrotic changes with bronchiectasis similar to prior examination. 2. Subtle superimposed acute left lower lobe air space disease suggesting atelectasis and/or early pneumonia PROGNOSIS: Fair ACTIVITY: As tolerated. DIET: Consistent carbohydrates DISPOSITION: 01 Home, Self-Care. DISCHARGE INSTRUCTIONS: 1. FOLLOW UP: DR ROGERS [phone] (09/04/18 @ 9:20), check kidney function 2. complete prednisone taper , resume original steroid dose after taper 3. complete antibiotics as proscribed. 4. Monitor fingerstick at home. adjust insulin based on glucose. 5. if symptoms return or worsen please call your pcp or return to the ER. ITEMS TO FOLLOWUP ON OUTPATIENT: 1. COPD exacerbation from left-sided pneumonia discharged on antibiotics 2. Diabetes mellitus-started on a prednisone taper 3. Medication management DISCHARGE CONDITION: Stable. TIME SPENT ON DISCHARGE: Greater than 35 minutes. Vital Signs/I&Os Vital Signs Date Time Temp Pulse Resp B/P (MAP) Pulse Ox O2 Delivery O2 Flow Rate FiO2 08/29/18 09:26 73 127/63 08/29/18 09:00 3.0 08/29/18 06:00 97.0 20 98 Nasal Cannula I&O- Last 24 Hours up to 6 AM 08/29/18 06:00 Intake Total 2480 ml Output Total 1600 ml Balance 880 ml Laboratory Data Labs 24H Laboratory Tests 2 08/28/18 16:57: Bedside Glucose (Misc Panel) 391H 08/28/18 20:40: Bedside Glucose (Misc Panel) 439H 08/28/18 21:10: 08/29/18 06:13: Immature Granulocyte % (Auto) 1.2, White Blood Count 11.9H, Red Blood Count 3.69L, Hemoglobin 11.2L, Hematocrit 32.9L, Mean Corpuscular Volume 89.2, Mean Corpuscular Hemoglobin 30.4, Mean Corpuscular Hemoglobin Concent 34.0, Red Cell Distribution Width 13.2, Platelet Count 238, Neutrophils (%) (Auto) 89.3H, Lymphocytes (%) (Auto) 3.4L, Monocytes (%) (Auto) 5.9H, Eosinophils (%) (Auto) 0.0, Basophils (%) (Auto) 0.2, Neutrophils # (Auto) 10.6H, Lymphocytes # (Auto) 0.4L, Monocytes # (Auto) 0.7, Eosinophils # (Auto) 0.0, Basophils # (Auto) 0.0, Nucleated Red Blood Cells % (auto) 0.0, Anion Gap 9, Glomerular Filtration Rate 51.2, Blood Urea Nitrogen 31H, Creatinine 1.41H, Sodium Level 133L, Potassium Le brayan 4.2, Chloride Level 100, Carbon Dioxide Level 24, Calcium Level 9.1 CBC/BMP Laboratory Tests 08/29/18 06:13 Red Blood Count 3.69 L, Mean Corpuscular Volume 89.2, Mean Corpuscular Hemoglobin 30.4, Mean Corpuscular Hemoglobin Concent 34.0, Red Cell Distribution Width 13.2, Neutrophils (%) (Auto) 89.3 H, Lymphocytes (%) (Auto) 3.4 L, Monocytes (%) (Auto) 5.9 H, Eosinophils (%) (Auto) 0.0, Basophils (%) (Auto) 0.2, Neutrophils # (Auto) 10.6 H, Lymphocytes # (Auto) 0.4 L, Monocytes # (Auto) 0.7, Eosinophils # (Auto) 0.0, Basophils # (Auto) 0.0, Calcium Level 9.1 FSBS Laboratory Tests Test 08/28/18 16:57 08/28/18 20:40 Range/Units Bedside Glucose (Misc Panel) 391 439 83-110 MG/DL Microbiology Microbiology 08/27/18 Blood Culture - Preliminary, Resulted No Growth after 48 hours. All Specime... 08/27/18 Blood Culture - Preliminary, Resulted No Growth after 48 hours. All Specime... 08/27/18 Respiratory Virus Panel (PCR) (RADHA) - Final, Complete Discharge Medications Scheduled (Digoxin) 125 Mcg Tab, 125 MCG PO 3XW, (Reported) MON, WED, FRI Aspirin (Aspir-81) 81 Mg Tab, 81 MG PO DAILY, (Reported) Atorvastatin Calcium (Atorvastatin Calcium) 20 Mg Tab, 20 MG PO DAILY, (Reported) Cefdinir (Cefdinir) 300 Mg Cap, 1 CAP PO BID Diltiazem HCl (Cartia Xt) 120 Mg Cap, 120 MG PO BID, (Reported) Insulin Aspart Protamine/Aspar (Novolog Mix 70/30 (70-30) 100 Unit/ml) 1 Units/0.01 Ml Susp, 20 UNITS SC QAM, (Reported) Insulin Aspart Protamine/Aspar (Novolog Mix 70/30 (70-30) 100 Unit/ml) 1 Units/0.01 Ml Susp, 18 UNITS SC QPM, (Reported) Levothyroxine Sodium (Synthroid) 75 Mcg Tab, 75 MCG PO DAILY, (Reported) Magnesium Oxide (Magnesium Oxide 400) 400 Mg Tab, 400 MG PO BID, (Reported) Prednisone (Prednisone) 5 Mg Tab, 5 MG PO DAILY, (Reported) Prednisone (Prednisone) 10 Mg Tab, 10 MG PO TAPER Take 4 tabs [id number], then 3 tabs dailyx3 day, then 2 tabs dailyx3 day, then 1 tab dailyx3 day then continue daily 5mg Ranitidine HCl (Ranitidine HCl) 300 Mg Cap, 300 MG PO DAILY, (Reported) Salmeterol/Fluticasone (Advair Diskus 250-50 Mcg/Dose) 14 Puff/Inhaler Aerp, 1 PUFF INH BID, (Reported) Sertraline Hcl (Sertraline HCl) 50 Mg Tab, 50 MG PO DAILY, (Reported) Spironolactone (Spironolactone) 25 Mg Tab, 25 MG PO DAILY, (Reported) Tiotropium [place] Monohydrate (Spiriva Handihaler) 5 Inhalation/Inhaler Powd, 1 PUFF INH DAILY, (Reported) Torsemide (Torsemide) 20 Mg Tab, 20 MG PO DAILY, (Reported) Vitamin D (Vitamin D) 2,000 Unit Cap, 2,000 UNIT PO DAILY, (Reported) Scheduled PRN Acetaminophen (Acetaminophen) 500 Mg Tab, 500 MG PO Q6H PRN for PAIN OR TEMP > 101, (Reported) Albuterol Sulfate (Proair Hfa) 108 Mcg/Act Aer, 2 PUFF INH BID PRN for SHORTNESS OF BREATH, (Reported) Alprazolam (Alprazolam) 0.5 Mg Tab, 0.5 MG PO QHS PRN for ANXIETY, (Reported) Benzonatate (Tessalon Perles) 100 Mg Cap, 100 MG PO BID PRN for COUGH, (Reported) Nitroglycerin (Nitrostat) 0.3 Mg Subl, 0.3 MG SL NITRO PRN for CHEST PAIN, (Reported) Allergies Coded Allergies: Contrast Media (Unverified Allergy, Unknown, 04/13/17) Methohexital (Unverified Adverse Reaction, Unknown, hypertension, 04/12/17) GME ATTESTATION GME ATTESTATION My faculty preceptor for this patient encounter was physically present during the encounter and was fully available. All aspects of the patient interview, examination, medical decision making process, and medical care plan development were reviewed and approved by the faculty preceptor. The faculty preceptor is aware and concurs with the plan as stated in the body of this note and will attest to such by his/her cosignature. ATTENDING NOTE I have both independently examined this patient as well as reviewed the note I have discussed in detail the findings and plan of treatment as documented in the note. I will continue to follow the patient and offer further guidance to the patients care as necessary during this hospital stay. MARVEL Etienne MD, DO Aug 29, 2018 14:43 MEREDITH KANG MD Aug 30, 2018 12:50
[2018-09-01 00:07] LABS: BODY FLUID CULTURE Not Indicated (.); LEGIONELLA ANTIGEN URINE Negative (Negative); ORGANISM ID Not indicated. (.); SPECIMEN SOURCE Urine (.); URINE STREP PNEUMONIAE ANTIGEN Negative (Negative)
== END 2018-08-29 12:15 | disposition home or self-care (01) | DRG 193 ==
LOC: M ED 11:54 → EDBD 11:54 → M ED INP 15:04 → M MS5PR 20:20
PROVIDERS: ADMIT Internal Medicine; ATTEND Hospitalist
DX: J18.9 Pneumonia, unspecified organism (principal); J96.01 Acute respiratory failure with hypoxia; J44.1 Chronic obstructive pulmonary disease with (acute) exacerbation; I50.32 Chronic diastolic (congestive) heart failure; E87.1 Hypo-osmolality and hyponatremia; I13.0 Hypertensive heart and chronic kidney disease with heart failure and stage 1 through stage 4 chronic kidney disease, or unspecified chronic kidney disease; Z95.0 Presence of cardiac pacemaker; J84.10 Pulmonary fibrosis, unspecified; F41.9 Anxiety disorder, unspecified; Z66 Do not resuscitate; F32.9 Major depressive disorder, single episode, unspecified; I48.0 Paroxysmal atrial fibrillation; E11.9 Type 2 diabetes mellitus without complications; I25.10 Atherosclerotic heart disease of native coronary artery without angina pectoris; Z88.6 Allergy status to analgesic agent; Z88.8 Allergy status to other drugs, medicaments and biological substances; Z79.4 Long term (current) use of insulin; Z91.040 Latex allergy status; N18.3 Chronic kidney disease, stage 3 (moderate); Z95.2 Presence of prosthetic heart valve; E78.5 Hyperlipidemia, unspecified; E03.9 Hypothyroidism, unspecified; D72.829 Elevated white blood cell count, unspecified

== ENCOUNTER → 2018-09-20 | Outpatient (REF) | payer MEDICARE, OTHER ==
[~2018-09-20] MED LIST changes: +CEFD1CAP8 PO; +TESS100C PO
[2018-09-20 17:24] LABS: PHOSPHORUS LEVEL 2.5 MG/DL (2.5-4.9)
== END ==
LOC: M LAB REF 16:20
PROVIDERS: ATTEND Internal Medicine
DX: I50.42 Chronic combined systolic (congestive) and diastolic (congestive) heart failure (principal)

== ENCOUNTER → 2018-10-03 | Outpatient (CLI) | payer MEDICARE, OTHER ==
[2018-10-03 17:10] LABS: ALBUMIN 3.9 GM/DL (3.2-5.2); CALCIUM LEVEL 8.9 MG/DL (8.8-10.2); CREATININE FOR GFR 1.32 MG/DL (0.70-1.30); GLOMERULAR FILTRATION RATE 55.3 (>35); PHOSPHORUS LEVEL 2.7 MG/DL (2.5-4.9); POTASSIUM SERUM 4.2 MEQ/L (3.5-5.1)
== END ==
LOC: M WUC 11:23
PROVIDERS: ATTEND Internal Medicine Cardiovascular Disease
DX: I50.42 Chronic combined systolic (congestive) and diastolic (congestive) heart failure (principal)

== ENCOUNTER → 2018-10-24 | Outpatient (CLI) | payer MEDICARE, OTHER ==
[2018-10-24 18:59] LABS: ALBUMIN 3.8 GM/DL (3.2-5.2); CALCIUM LEVEL 9.4 MG/DL (8.8-10.2); CREATININE FOR GFR 1.37 MG/DL (0.70-1.30); GLOMERULAR FILTRATION RATE 52.8 (>35); PHOSPHORUS LEVEL 2.5 MG/DL (2.5-4.9); POTASSIUM SERUM 4.1 MEQ/L (3.5-5.1)
== END ==
LOC: M WUC 12:27
PROVIDERS: ATTEND Internal Medicine Cardiovascular Disease
DX: I50.42 Chronic combined systolic (congestive) and diastolic (congestive) heart failure (principal)

== ENCOUNTER → 2019-02-16 | Outpatient (CLI) | payer MEDICARE, OTHER ==
[~2019-02-16] MED LIST changes: +AMIO200T10 PO; -AMIO20TA PO; +SERT-141 PO; -SERT50TA PO
== END ==
LOC: M WUC 08:13
PROVIDERS: ATTEND Internal Medicine Cardiovascular Disease
DX: I50.42 Chronic combined systolic (congestive) and diastolic (congestive) heart failure (principal)

== ENCOUNTER → 2019-05-19 | Outpatient (CLI) | payer MEDICARE, OTHER ==
[2019-05-19 18:25] LABS: ALBUMIN 3.6 GM/DL (3.2-5.2); CALCIUM LEVEL 9.1 MG/DL (8.8-10.2); CREATININE FOR GFR 1.58 MG/DL (0.70-1.30); GLOMERULAR FILTRATION RATE 44.8 (>35); PHOSPHORUS LEVEL 2.3 MG/DL (2.5-4.9); POTASSIUM SERUM 4.2 MEQ/L (3.5-5.1)
== END ==
LOC: M WUC 14:47
PROVIDERS: ATTEND Internal Medicine Cardiovascular Disease
DX: I50.42 Chronic combined systolic (congestive) and diastolic (congestive) heart failure (principal)